=== PATIENT | female | born 1950 | race Caucasian/White ===

== ENCOUNTER 2019-10-10 14:22 | Outpatient (CLI) | payer MEDICARE, SELFPAY ==
--- NOTE | ~2019-10-10 | XR_ITS ---
EXAMINATION: XR knee RT min 4V DATE: 10/10/2019 14:52 INDICATION: Right knee pain. TECHNIQUE: 4 views of right knee were obtained. COMPARISON: Right knee radiographs 12/09/2018 FINDINGS: There is varus angulation at the knee. No fracture. There is severe osteoarthritis of media l compartment and mild osteoarthritis of lateral and patellofemoral compartments. No knee joint effus ion. IMPRESSION: 1. Severe right knee osteoarthritis. Reviewed, dictated and finalized at location A.
== END 2019-10-10 14:23 | disposition home or self-care (01) ==
LOC: CHSIMG 14:26
PROVIDERS: PCP Internal Medicine; Visit Provider Internal Medicine
DX: M25.561 Pain in right knee (principal)
CPT/HCPCS: 73564

== ENCOUNTER 2019-11-27 16:41 | Outpatient (RCR) | payer MEDICARE, SELFPAY | END 2019-11-27 17:36 | disposition home or self-care (01) | LOC: CHSPT 16:41 | PROVIDERS: PCP Internal Medicine; Visit Provider Orthopaedic Surgery | DX: M17.11 Unilateral primary osteoarthritis, right knee (principal) | CPT/HCPCS: 97161 ==

== ENCOUNTER 2020-01-08 12:50 | Outpatient (CLI) | payer MEDICARE, SELFPAY ==
--- NOTE | ~2020-01-08 | MR_ITS ---
EXAMINATION: MRA brain wo con DATE: 01/08/2020 14:28 INDICATION: Cerebral aneurysm. TECHNIQUE: Magnetic resonance angiography (MRA) of the brain was performed without intravenous contra st with T1-weighted SPGR by the 3D [id number] technique. Maximum intensity projection 3D-reconstr uctions were obtained. COMPARISON: Brain MRI 10/01/2014 FINDINGS: Left vertebral artery is dominant. There is no significant stenosis of basilar artery or the posterio r cerebral arteries. The posterior communicating arteries are normal. There is no significant stenosi s of the intracranial internal carotid arteries or anterior or middle cerebral arteries. 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 There is no aneurysm. IMPRESSION: 1. No aneurysm or significant intracranial arterial stenosis. Reviewed, dictated and finalized at location B.
--- NOTE | ~2020-01-08 | MR_ITS ---
EXAMINATION: MR brain/brain stem wo/w con DATE: 01/08/2020 14:29 INDICATION: Cerebral aneurysm. TECHNIQUE: Magnetic resonance imaging (MRI) of the brain and brainstem was performed without and with 17 mm MultiHance intravenous contrast. Sequences included sagittal and axial T1-weighted FSE, axial diffusion-weighted FS EPI, axial T2*-weighted GRE, axial T2-weighted FLAIR Propeller, and axial T2-we ighted Propeller. Postcontrast sequences included axial and coronal T1-weighted FSE. Apparent diffusi on coefficient (ADC) maps were created. COMPARISON: Brain MRI 10/01/2014 FINDINGS: There are areas of chronic encephalomalacia in right frontal lobe with old blood products. Again seen are chronic scattered microhemorrhages in the cerebrum bilaterally with sparing of the neal p laird nuclei. There are scattered areas of nonspecific increased T2-weighted signal intensity in the cerebral white matter. There is no acute ischemic infarct or abnormal mass lesion. The ventricles ar e normal in size. The paranasal sinuses are clear. The orbits are normal. The mastoid air cells are n ormal. IMPRESSION: 1. Areas of chronic encephalomalacia in the right frontal lobe with old blood products. 2. Scattered chronic microhemorrhages in the cerebrum bilaterally with sparing of the deep laird nucle i. This finding is most commonly seen with amyloid angiopathy. 3. Stable moderate nonspecific cerebral white matter disease, which likely represents chronic small v essel ischemic disease. Reviewed, dictated and finalized at location B. IMPRESSION: 1. Areas of chronic encephalomalacia in the right frontal lobe with old blood p roducts. 2. Scattered chronic microhemorrhages in the cerebrum bilaterally with sparing of the deep laird nuclei. This finding is most commonly seen with amyloid angiop athy. 3. Stable moderate nonspecific cerebral white matter disease, which likely repr esents chronic small vessel ischemic disease.
[2020-01-08 13:47] LABS: Estimated Glomerular Filt Rate > 60
== END 2020-01-08 12:51 | disposition home or self-care (01) ==
PROVIDERS: PCP Internal Medicine; Visit Provider Psychiatry & Neurology Neurology
DX: I67.1 Cerebral aneurysm, nonruptured (principal)
CPT/HCPCS: 36415; 70544; 70553; A9577

== ENCOUNTER 2020-03-15 12:48 | Outpatient (CLI) | payer MEDICARE, SELFPAY ==
--- NOTE | ~2020-03-15 | MM_ITS ---
EXAMINATION: MM screening [facility] BI w jolie HISTORY: Screening TECHNIQUE: Craniocaudal and mediolateral oblique 3-D tomosynthesis images were obtained and synthetic 2-D images were generated. CAD analysis was submitted and interpreted. COMPARISON: Comparison to multiple prior studies sequentially, with oldest reviewed study dated 01/2012. BREAST PARENCHYMAL COMPOSITION: There are scattered areas of fibroglandular density. FINDINGS: There is no evidence of suspicious mass, calcification, or architectural distortion to sugg est malignancy in either breast. There has been no suspicious interval change. IMPRESSION: 1. No mammographic evidence of malignancy. 2. Recommend routine screening mammography in one year. BI-RADS Category 1: Negative Reviewed, dictated and finalized at location A.
== END 2020-03-15 12:49 | disposition home or self-care (01) ==
LOC: CHSIMG 12:49
PROVIDERS: PCP Internal Medicine; Visit Provider Internal Medicine
DX: Z12.31 Encounter for screening mammogram for malignant neoplasm of breast (principal)
CPT/HCPCS: 77063; 77067

== ENCOUNTER 2020-09-18 08:51 | Outpatient (CLI) | payer MEDICARE, SELFPAY ==
--- NOTE | 2020-09-18 08:58 | ECHO_ITS ---
Patient Info Name: Ani Salgado Age: 70 years : 1950 Gender: Female Ht: 66 in Wt: 217 lbs BSA: 2.18 m2 HR: 62 bpm BP: 170 / 66 mmHg Heart Rhythm: Sinus Rhythm Technical Quality: Fair Exam Date: 09/18/2020 9:06 AM Exam Location: [facility], [place] Patient Status: Outpatient Admit Date: 09/18/2020 Staff Ordering Physician: SundarKristine MD Pool Lifeguard: Eloisa Blair RDCS Attending Provider: Sundar, Kristine Lopez MD Referring Physician: Oseas NGUYEN; Exam Type: CA echo doppler color flow Study Info Indications R06.09 - Other forms of dyspnea Complete two-dimensional, color flow and Doppler transthoracic echocardiogram is performed with contrast to opacify the left ventricle and to improve the deliniation of the left ventricle endocardial borders. Strain analysis performed. Contrast/Agitated Saline Contrast/Ag. Saline: Definity Amount: 4.00 ml New IV Access: Antecubital Space and Right Site Condition: No extravasation, Site dressing applied and IV removed History/Risk Factors Hypertension: No Dyslipidemia: No Congenital Heart Disease (CHD): No Peripheral Arterial Disease (PAD): No Myocardial Infarction ([place]): No Chronic Lung Disease: No Obesity: Yes Renal Disease: No Coronary Artery Disease (CAD) No Congestive Heart Failure (CHF): No Cardiomyopathy/LV Systolic Dysfunction: No Diabetes Mellitus: No COPD: No Tobacco Use: Never Cerebrovascular Disease: CVA Family History: Diabetes Mellitus Deep Vein Thrombosis (DVT): None Dialysis: None Frailty Scale (CSHA): 3: Managing Well Cardiac Arrest: No Summary 1. Left ventricular chamber dimension is normal. 2. Definity contrast administered improved wall motion interpretation. 3. Left ventricular systolic function is normal, estimated at 60-65%. 4. The left ventricular diastolic function is grade I diastolic dysfunction. 5. E/e' 12 is mildly elevated. 6. Global longitudinal strain is abnormal at -13.4%. 7. Left atrial chamber dimension is mildly enlarged. 8. There is trace tricuspid valve regurgitation. 9. No pulmonary hypertension, estimated pulmonary arterial systolic pressure is 36 mmHg. Left Ventricle E/e' 12 is mildly elevated. Global longitudinal strain is abnormal at -13.4%. Definity contrast administered improved wall motion interpretation. Left ventricular chamber dimension is normal. Left ventricular systolic function is normal, estimated at 60-65%. The left ventricular diastolic function is grade I diastolic dysfunction. Right Ventricle Right ventricular systolic function is normal with normal TAPSE 2.4 cm.. Right ventricular chamber dimension is normal. Left Atria Left atrial chamber dimension is mildly enlarged. Right Atria Right atrial chamber dimension is normal. Aortic Valve The aortic valve is trileaflet. There is no aortic valve stenosis. There is no aortic valve regurgitation. Pulmonic Valve There is no pulmonic regurgitation. Mitral Valve There is no mitral valve stenosis. There is no mitral valve regurgitation. Tricuspid Valve There is trace tricuspid valve regurgitation. No pulmonary hypertension, estimated pulmonary arterial systolic pressure is 36 mmHg. Pericardium/Pleural There is no pericardial effusion. Inferior Vena Cava Normal inferior vena cava with >50% collapse upon inspiration consistent with normal
== END 2020-09-18 08:52 | disposition home or self-care (01) ==
LOC: CHSIMG 08:52
PROVIDERS: PCP Internal Medicine; Visit Provider Internal Medicine Endocrinology, Diabetes & Metabolism
DX: R06.09 Other forms of dyspnea (principal)
CPT/HCPCS: C8929

== ENCOUNTER 2020-09-24 08:57 | Outpatient (CLI) | payer MEDICARE, SELFPAY ==
--- NOTE | 2020-09-25 15:15 | P.PCNPFT_ITS ---
PFT Procedure Performed PFT Procedure Performed Spirometry with Pre/Post Bronchodilator Plethysmography (Lung Vol) Diffusing Cap (DLCO) Flow Vol Loop PFT Interpretation DOS: 09/24/2020 REQUESTING: Kristine Farooq MD REASON FOR TESTING: Dyspnea on exertion PULMONARY FUNCTION TESTS results are reliable and reproducible. Spirometry: FEV1 is 1.21 L, 53% predicted moderately decreased. FVC is 68% predicted. The FEV1/FVC ratio is normal. there is a robust response to bronchodilator, 27% increase in the FEV1 and 30% increase in the FVC. Lung volumes: Total lung capacity is 97% normal. Slow vital capacity is 68%. Residual volume is 147%, moderately increased consistent with moderate air zeina ing. RV/TLC also increased. Airway resistance is increased at 288%. Diffusion: DLCO is 86% predicted, normal. Flow volume loop: There is scooping of the expiratory limb, consistent with an obstructive impairment. IMPRESSION: This shows a moderate obstructive ventilatory impairment with excellent response to bronchodilator, moderate air trapping, increased airway resistance and normal diffusion. In the proper clinical setting this pattern may be consistent with asthma. Savi Brumfield MD
== END 2020-09-24 08:58 | disposition home or self-care (01) ==
LOC: CHSCARD 09:00
PROVIDERS: PCP Internal Medicine; Visit Provider Internal Medicine Endocrinology, Diabetes & Metabolism
DX: R06.00 Dyspnea, unspecified (principal)
CPT/HCPCS: 94060; 94726; 94729

== ENCOUNTER 2020-12-19 15:50 | Outpatient (CLI) | payer MEDICARE, SELFPAY ==
--- NOTE | ~2020-12-19 | XR_ITS ---
XR ankle LT min 3V DATE: 12/19/2020 16:07 INDICATION: Left ankle and pain and swelling for one week. No injury. TECHNIQUE: 4 views COMPARISON: None FINDINGS: Diffuse soft tissue swelling of the ankle. No fracture or dislocation of the ankle or disruption of the ankle mortise. No periosteal reaction or bone destruction. Plantar calcaneal enthesopathy IMPRESSION: Soft tissue swelling Plantar calcaneal enthesopathy Reviewed, dictated and finalized at location A.
== END 2020-12-19 15:51 | disposition home or self-care (01) ==
LOC: CHSIMG 15:52
PROVIDERS: PCP Internal Medicine; Visit Provider Nurse Practitioner Family
DX: M25.472 Effusion, left ankle (principal)
CPT/HCPCS: 73610

== ENCOUNTER 2020-12-20 12:00 | Outpatient (CLI) | payer MEDICARE, SELFPAY ==
--- NOTE | ~2020-12-20 | US_ITS ---
EXAMINATION: US venous doppler [facility] DATE: 12/20/2020 12:29 INDICATION: Left lower limb swelling TECHNIQUE: June scale images without and with compression and Doppler images of the left lower extrem ity veins were obtained. COMPARISON: None FINDINGS: The left common femoral vein, profunda femoral vein, femoral vein, popliteal vein, peroneal trunk, posterior tibial veins, and greater saphenous vein are patent. IMPRESSION: 1. Patent left lower extremity veins. No evidence of deep venous thrombosis. Reviewed, dictated and finalized at location B.
== END 2020-12-20 12:01 | disposition home or self-care (01) ==
LOC: CHSIMG 12:02
PROVIDERS: PCP Internal Medicine; Visit Provider Nurse Practitioner Family
DX: M79.89 Other specified soft tissue disorders (principal); R79.1 Abnormal coagulation profile
CPT/HCPCS: 93971

== ENCOUNTER 2021-05-05 12:53 | Outpatient (CLI) | payer MEDICARE, SELFPAY ==
--- NOTE | ~2021-05-05 | DEXA_ITS ---
Bone Density Report Name: Ani Salgado Age: 71 Sex: Female Ethnicity: White Date of : 1950 Indication: postmenopausal; screening for osteoporosis; height loss; prior fracture; asthma or emphysema; Referring Provider: Jonathan Cabral Study: Bone densitometry was performed. Exam Date: May 05, 2021 Accession number: [id number] Bone Density: Region BMD T-score Z-score Classification AP Spine(L1-L4) 1.099 0.5 2.7 Normal Femoral Neck (Left) 0.875 0.2 2.2 Normal Total Hip (Left) 1.046 0.9 2.5 Normal Femoral Neck (Right) 0.829 -0.2 1.7 Normal Total Hip (Right) 1.020 0.6 2.3 Normal Femoral Neck Mean 0.852 0.0 1.9 Normal Total Hip Mean 1.033 0.7 2.4 Normal World Health Organization criteria for BMD impression classify patients as: Normal (T-score at or above -1.0), Osteopenia (T-score between -1.0 and -2.5), or Osteoporosis (T-score at or below -2.5). 10-year Fracture Risk: FRAX not reported because: All T-scores for Spine Total, Hip Total, Femoral Neck at or above -1.0 Clinical Information Provided by Patient: Has had a low trauma fracture Has used the following medications: Vitamin D, Calcium Has the following medical conditions: Asthma or Emphysema, stem cell treatment on knee rt Patient maximum height was 67 Menopause Age: 45 No regular weight bearing exercise Drinks caffeinated beverages Onset of menses at age 9 Number of children 3 Impression: The patient has normal bone mass. The patient has risk factors, including: previous fracture. Discussion: BONE DENSITY IS ABOVE THE MINIMUM DESIRABLE LEVEL AT ALL SKELETAL SITES TESTED. This patient?s bone mineral density is above the minimum desirable level (T-score -1.0 or better) at all sites measured. The patient should follow a healthful lifestyle (good nutrition with adequate calcium and vitamin D, and appropriate weight-bearing exercise). Follow-Up: Consider repeating this study in 5 years or sooner if there is some new clinical indication. Reported by: Dr. Viktor Coffman on 05/05/2021 1:43:00 PM. Reviewed, dictated and finalized at location AKrish ESTRADA
--- NOTE | ~2021-05-05 | MM_ITS ---
EXAMINATION: MM screening [facility] BI w jolie HISTORY: Screening TECHNIQUE: Craniocaudal and mediolateral oblique 3-D tomosynthesis images were obtained and synthetic 2-D images were generated. CAD analysis was submitted and interpreted. COMPARISON: Comparison to multiple prior studies sequentially, with oldest reviewed study dated 06/27. BREAST PARENCHYMAL COMPOSITION: Breast composed of scattered areas of fibroglandular density. FINDINGS: There is no evidence of suspicious mass, calcification, or architectural distortion to sugg est malignancy in either breast. There has been no suspicious interval change. IMPRESSION: 1. No mammographic evidence of malignancy. 2. Recommend routine screening mammography in one year. BI-RADS Category 1: Negative Reviewed, dictated and finalized at location A. WARE ASSEMBLER
== END 2021-05-05 12:54 | disposition home or self-care (01) ==
LOC: CHSIMG 12:55
PROVIDERS: PCP Internal Medicine; Visit Provider Internal Medicine
DX: M81.0 Age-related osteoporosis without current pathological fracture (principal); Z12.31 Encounter for screening mammogram for malignant neoplasm of breast
CPT/HCPCS: 77063; 77067; 77080

== ENCOUNTER 2022-05-26 15:39 | Emergency (ER) | payer MEDICARE, SELFPAY ==
--- NOTE | ~2022-05-26 | XR_ITS ---
EXAMINATION: XR knee LT 3V DATE: 05/26/2022 16:08 INDICATION: Left knee pain TECHNIQUE: Three views of the left knee were obtained. COMPARISON: None. FINDINGS: Alignment is normal. No fracture or osteochondral lesion. There is mild tricompartmental os teoarthritis characterized by tiny marginal osteophytes. Chondrocalcinosis is noted. No joint effusio n/synovitis. There is soft tissue swelling surrounding the knee. IMPRESSION: 1. No acute osseous abnormality. Reviewed, dictated and finalized at location L. DENT ANALYST
--- NOTE | 2022-05-26 15:47 | ED.LOWEXIN ---
HPI - Extremity Injury (Lower) General Chief Complaint: Extremity Injury, Lower Stated Complaint: injured left knee a week ago Time Seen by Provider: 05/26/22 15:46 Source: patient and RN notes reviewed Mode of arrival: ambulatory Limitations: no limitations History of Present Illness complaint: knee injury Onset (ago): day(s) (12) Injury: Left: knee Type of Injury: blunt Place: home Severity: moderate Severity scale (1-10): 5 Relieving factors: rest Exacerbating factors: movement and palpation Context: fall and direct blow Associated symptoms: swelling and ambulatory Other symptoms: none Treatments prior to arrival: bandage Related Data Home Medications Medication Instructions Recorded Confirmed albuterol sulfate 90 mcg/actuation 2 puff inhalation Q4H 05/26/22 05/26/22 aerosol inhaler fluticasone furoate 200 1 inh inhalation DAILY 05/26/22 05/26/22 mcg-vilanterol 25 mcg/dose inhalation powder (Breo Ellipta) latanoprost 0.005 % eye drops 1 drp EACH EYE DAILY 05/26/22 05/26/22 Allergies Allergy/AdvReac Type Severity Reaction Status Date / Time Sulfa (Sulfonamide Allergy Unknown Verified 05/26/22 16:00 Antibiotics) Review of Systems Review of Systems: All systems reviewed & are unremarkable except as noted in HPI and below PMFSH Past Medical History Medical History (Updated 05/26/22 @ 16:33 by Gulshan Calzada MD) Asthma Glaucoma Surgical History Surgical History (Updated 05/26/22 @ 16:08 by Gulshan Calzada MD) H/O lumbar discectomy H/O parathyroidectomy Hx of cholecystectomy Exam Const: General: healthy appearing, no acute distress and alert Nutritional Appearance: well nourished Orientation/consciousness: patient oriented x3 Limitations: no limitations HENMT: Head: normal to inspection Ears: external ears normal Eyes: Conjunctivae: conjunctivae normal Pupils: Equal, round and reactive pupils present EOM: EOMs intact bilaterally Neck: Neck: normal visual inspection Resp: Effort & Inspection: normal respiratory effort Auscultation: clear to auscultation bilaterally Cardio: Rate: regular rate Rhythm: regular rhythm GI: GI Palp: Yes Soft to palpation and No Tenderness to palpation present (GI) Auscultation: normal bowel sounds Back/Spine/Pelvis: Cervical Spine: cervical ROM normal Thoracic/Lumbar Spine: thoraco-lumbar ROM normal Skin: General skin exam: normal color Rashes: no rashes Neuro: General: patient oriented x3, moves all extremities, no focal motor deficits and CN's II-XI intact bilaterally Speech: normal speech Gait exam (Neuro): Normal gait present Extrem: General: no clubbing, cyanosis or edema Left lower extremity: knee Details: tenderness Location: of the patella (global), swelling Location: of the patella (mild) and abrasion knee anterior Details: single Psych: Mental Status: mental status grossly normal Affect: normal affect Attitude: cooperative Course Vital Signs Vital signs: Vital Signs Temperature 36.6 C 05/26/22 15:52 Pulse Rate 60 05/26/22 15:52 Respiratory Rate 20 05/26/22 15:52 Blood Pressure 159/59 H 05/26/22 15:52 Pulse Oximetry 94 05/26/22 15:52 Oxygen Delivery Room Air 05/26/22 15:52 Temperature 36.7 C 05/26/22 16:42 Pulse Rate 62 05/26/22 16:42 Respiratory Rate 20 05/26/22 16:42 Blood Pressure 148/60 H 05/26/22 16:42 Pulse Oximetry 96 05/26/22 16:42 Oxygen Delivery Room Air 05/26/22 16:42 MDM - Extremity Injury (Lower) MDM Narrative Medical decision making narrative: I considered knee contusion, patellar fracture, tibial plateau fracture, internal knee derangement. Exam does not show any evidence of internal knee derangement. All of her tenderness is over the patella which shows no evidence of fracture. Imaging Data Attestation: I personally reviewed and interpreted this imaging study as follows: My impression: I see no evidence of patellar fracture or abnormal knee pat
[2022-05-26 15:52] VITALS: BP 159/59; PULSE 60; RESP 20; TEMP 36.6; O2SAT 94
[2022-05-26 16:42] VITALS: BP 148/60; PULSE 62; RESP 20; TEMP 36.7; O2SAT 96
== END 2022-05-26 16:45 | disposition home or self-care (01) ==
PROVIDERS: Emergency Provider Emergency Medicine; PCP Internal Medicine
DX: S80.02XA Contusion of left knee, initial encounter (principal); W19.XXXA Unspecified fall, initial encounter
CPT/HCPCS: 73562; 99283

== ENCOUNTER 2022-09-17 12:57 | Outpatient (CLI) | payer MEDICARE, SELFPAY ==
--- NOTE | ~2022-09-17 | MM_ITS ---
EXAMINATION: MM screening [facility] BI w jolie HISTORY: Screening mammogram TECHNIQUE: Craniocaudal and mediolateral oblique 3-D tomosynthesis images were obtained and synthetic 2-D images were generated. CAD analysis was submitted and interpreted. COMPARISON: 05/05/2021, 03/15/2020, 07/14/2018 BREAST PARENCHYMAL COMPOSITION: There are scattered areas of fibroglandular density. FINDINGS: No suspicious mass, calcification, or architectural distortion are identified in either edna ast to suggest malignancy. There has been no suspicious interval change. IMPRESSION: 1. No mammographic evidence of malignancy. 2. Recommend routine screening mammography in one year. BI-RADS Category 1: Negative Reviewed, dictated and finalized at location A.
== END 2022-09-17 12:58 | disposition home or self-care (01) ==
LOC: CHSIMG 13:00
PROVIDERS: PCP Internal Medicine; Visit Provider Internal Medicine Endocrinology, Diabetes & Metabolism
DX: Z12.31 Encounter for screening mammogram for malignant neoplasm of breast (principal)
CPT/HCPCS: 77063; 77067

== ENCOUNTER 2023-07-15 12:49 | Outpatient (CLI) | payer MEDICARE, SELFPAY ==
[2023-07-15 13:27] LABS: Anion Gap 10 mmol/L (8-16); Blood Urea Nitrogen 21 mg/dL (7-18); Calcium 9.2 mg/dL (8.5-10.1); Carbon Dioxide 29 mmol/L (21-32); Chloride 103 mmol/L (98-108); Estimated Glomerular Filt Rate 59; Glucose 107 mg/dL (70-99); Osmolality Calculated 297 mOsm/kg (285-295); Potassium 4.2 mmol/L (3.5-5.1); Sodium 142 mmol/L (136-145)
== END 2023-07-15 12:50 | disposition home or self-care (01) ==
LOC: CHSLAB 12:52
PROVIDERS: PCP Internal Medicine; Visit Provider Internal Medicine
DX: I10 Essential (primary) hypertension (principal)
CPT/HCPCS: 36415; 80048

== ENCOUNTER 2023-09-03 11:10 | Outpatient (RCR) | payer MEDICARE, SELFPAY ==
--- NOTE | 2023-09-03 13:13 | OPREHPOC ---
Outpatient Therapy Plan of Care This is a Multidisciplinary Plan of Care that may contain components documented by all disciplines (PT, OT, and ST.) PT Problem 1 PT Problem #1 Knowledge Deficit PT Goal 1 Goal patient to demonstrate independence with HEP Target Visit 4 PT Problem 2 PT Problem #2 Pain PT Goal 1 Goal 1. Patient to report highest pain at 2/10 2. Patient to report ability to sleep with no disturbance due to R knee pain Target Visit 8 PT Problem 3 PT Problem #3 Impaired Range of Motion PT Goal 1 Goal Patient to demonstrate 0-120 deg of R knee AROM to return to stair navigation at PLOF Target Visit 8 PT Problem 4 PT Problem #4 Impaired Strength PT Goal 1 Goal Patient to demonstrate 5/5 R knee and hip strength to return to getting into and out of bed with independence Target Visit 8 PT Problem 5 PT Problem #5 Impaired Functional Mobil PT Goal 1 Goal 1. Patient to report ability to grocery shop with no seated breaks 2. Patient to improve LEFS by 20% 3. Patient to complete 6 min walk test without use of AD Target Visit 8
--- NOTE | 2023-09-03 13:13 | PTOPEVAL1 ---
Assessment and note entered by Breana Zuniga DPT Evaluation Information Assessment Status Evaluation Diagnosis R knee pain Onset 08/13/23 Subjective Information Patient reports she underwent a R TKA on . She had home health until 08/30/23. She reports she returned to [place] on 09/01/23 and returns 09/29/23. She reports she is able to sleep in bed. She reports she is elevating and icing. She reports she used a cane prior to surgery and has used a walker since . She reports she would eventually like to walk without AD. She reports difficulty getting her leg into bed, navigating steps, and ambulating prolonged periods. She reports she also has a raised toilet. Patient reports she is retired. Patient reports history of stroke with residual L sided weakness Reported Pain Level Pain Score 4: Self Report Assessment PT Clinical Summary Mrs. Salgado presents to PT with R knee s/p R TKA. She demonstrates decreased R knee, decreased R knee strength and impaired gait mechanics limiting her ability to get into and out of bed, navigate stairs and ambulate prolonged distances for grocery shopping. She would benefit from skilled PT to address impairments and return to PLOF. Plan of Care Interventions Electrical Stimulation,Gait Training,Hot Pack/Cold Pack,Manual Therapy,Neuro Re-education,Patient/ Caregiver Educati,Therapeutic Activities, Therapeutic Exercise PT Services Indicated Yes Treatment Frequency and 2x weekly for 8 visits Duration These treatments will address the objective and functional deficits as defined above. The patient will be advanced safely and appropriately in order for the patient to progress towards his/her prior level of function. Additional exercises will be introduced and as well as a comprehensive home exercise program upon discharge, if needed, ?to ensure carryover of functional gains achieved in the clinic. This treatment plan has been reviewed and agreement upon by the patient.
--- NOTE | 2023-09-30 17:09 | OPREHPOC ---
Outpatient Therapy Plan of Care This is a Multidisciplinary Plan of Care that may contain components documented by all disciplines (PT, OT, and ST.) PT Problem 1 PT Problem #1 Knowledge Deficit PT Goal 1 Goal patient to demonstrate independence with HEP Target Visit 4 Progress Met PT Problem 2 PT Problem #2 Pain PT Goal 1 Goal 1. Patient to report highest pain at 2/10 2. Patient to report ability to sleep with no disturbance due to R knee pain Target Visit 20 Progress Partially Met Comment continue PT Problem 3 PT Problem #3 Impaired Range of Motion PT Goal 1 Goal Patient to demonstrate 0-120 deg of R knee AROM to return to stair navigation at PLOF Target Visit 20 Progress Partially Met Comment continue PT Problem 4 PT Problem #4 Impaired Strength PT Goal 1 Goal Patient to demonstrate 5/5 R knee and hip strength to return to getting into and out of bed with independence Target Visit 20 Progress Not Met PT Problem 5 PT Problem #5 Impaired Functional Mobil PT Goal 1 Goal 1. Patient to report ability to grocery shop with no seated breaks 2. Patient to improve LEFS by 20% 3. Patient to complete 6 min walk test without use of AD Target Visit 20 Progress Not Met Comment continue
--- NOTE | 2023-09-30 17:10 | PTOPPROG ---
Assessment and note entered by Ami Khan, PT Evaluation Information Assessment Status Progress Diagnosis R knee pain, R TKA Onset 08/13/23 Subjective Information Ani Salgado reports she saw the doctor yesterday and she was given a new order to continue PT. She said the doctor was happy with her range of motion but thought she needed to work on strength more and get her knee all the way straight. She is noting 1/10 right knee pain currently and pain will get up to 3/10 at worst when she is stretching. She does note difficulty going up and down stairs especially tall ones. She also has some pain when standing up from a chair. She was able to drive for the first time since surgery. She has stopped using her walker at home. Assessment PT Clinical Summary Ani Salgado has completed 8 skilled PT visits for right knee pain following a right TKA. She is reporting decreased pain and improved mobility since initiating PT. She is still having difficulty navigating stairs, getting out of chairs, and walking longer distances. She was able to start driving by herself for the first time today. She is objectively demonstrating steady improvements in right knee ROM, strength, gait, and balance. She does still have deficits in right knee extension AROM, decreased functional LE strength, altered gait, and altered balance. She will continue to benefit from skilled PT to further address ongoing deficits. Plan of Care Interventions Gait Training,Intermittent Compression,Neuro Re- education,Patient/Caregiver Educati,Therapeutic Activities,Therapeutic Exercise PT Services Indicated Yes Treatment Frequency and 2 times a week for 12 visits Duration These treatments will address the objective and functional deficits as defined above. The patient will be advanced safely and appropriately in order for the patient to progress towards his/her prior level of function. Additional exercises will be introduced and as well as a comprehensive home exercise program upon discharge, if needed, ?to ensure carryover of functional gains achieved in the clinic. This treatment plan has been reviewed and agreement upon by the patient.
--- NOTE | 2023-11-17 11:30 | PTOPPROG ---
Assessment and note entered by Jhonny Schmidt Evaluation Information Assessment Status Progress Diagnosis R knee pain, R TKA Onset 08/13/23 Subjective Information Pt. reports that her knee pain is mild in general. She reports that she will notice pain with activity, but is decreasing. She reports that she still notes stiffness in the knee, but is improving. Her biggest concern at this time is her inability to balance. 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 She states that she would like to continue with PT in order to improve balance and walk through the yard independently. Assessment PT Clinical Summary Pt. has attended a total of 20 treatment sessions to address right knee pain and stiffness post R TKA. She has met majority of goals regarding function and knee mobility. She continues to express concern regarding balance and feeling that she may fall. Upon assessment slight fall risk is noted with the TInetti. Continued skilled PT is indicated in order to address balance deficits, remaining strength deficits and to assist pt. in being able to participate in regular outdoor activities without use of an AD. Plan of Care Interventions Gait Training,Manual Therapy,Neuro Re-education, Patient/Caregiver Educati,Therapeutic Activities, Therapeutic Exercise,Self-Care/Home Management PT Services Indicated Yes Treatment Frequency and 2x/week x 8 visits Duration These treatments will address the objective and functional deficits as defined above. The patient will be advanced safely and appropriately in order for the patient to progress towards his/her prior level of function. Additional exercises will be introduced and as well as a comprehensive home exercise program upon discharge, if needed, ?to ensure carryover of functional gains achieved in the clinic. This treatment plan has been reviewed and agreement upon by the patient.
--- NOTE | 2023-11-24 06:57 | PCPTNOTE ---
Cancelled session today. Reports she has to be in [place] by 10:15 am.
== END 2023-12-01 09:52 | disposition still patient (30) ==
LOC: CHSPT 11:10
DX: M17.11 Unilateral primary osteoarthritis, right knee (principal)
CPT/HCPCS: 97014; 97016; 97110; 97112; 97150; 97161; 97530; G0283

== ENCOUNTER 2023-11-23 10:17 | Outpatient (CLI) | payer MEDICARE, SELFPAY ==
--- NOTE | ~2023-11-23 | MM_ITS ---
EXAMINATION: MM screening [facility] BI w jolie HISTORY: Screening mammogram TECHNIQUE: Craniocaudal and mediolateral oblique 3-D tomosynthesis images were obtained and synthetic 2-D images were generated. CAD analysis was submitted and interpreted. COMPARISON: 09/17/2022, 05/05/2021, 03/15/2020 BREAST PARENCHYMAL COMPOSITION:Not Dense. There are scattered areas of fibroglandular density. FINDINGS: No suspicious mass, calcification, or architectural distortion are identified in either edna ast to suggest malignancy. There has been no suspicious interval change. IMPRESSION: No mammographic evidence of malignancy. Recommend routine screening mammography in one year. BI-RADS Category 1: Negative Reviewed, dictated and finalized at location .
== END 2023-11-23 10:18 | disposition home or self-care (01) ==
PROVIDERS: PCP Internal Medicine; Visit Provider Internal Medicine
DX: Z12.31 Encounter for screening mammogram for malignant neoplasm of breast (principal)
CPT/HCPCS: 77063; 77067

== ENCOUNTER 2023-12-06 10:15 | Outpatient (RCR) | payer MEDICARE, SELFPAY ==
--- NOTE | 2023-12-20 11:30 | OPREHPOC ---
Outpatient Therapy Plan of Care This is a Multidisciplinary Plan of Care that may contain components documented by all disciplines (PT, OT, and ST.) PT Problem 1 PT Problem #1 Knowledge Deficit PT Goal 1 Goal patient to demonstrate independence with HEP Target Visit 4 Progress Met PT Problem 2 PT Problem #2 Pain PT Goal 1 Goal 1. Patient to report highest pain at 2/10 met 2. Patient to report ability to sleep with no disturbance due to R knee pain met Target Visit 20 Progress Met PT Problem 3 PT Problem #3 Impaired Range of Motion PT Goal 1 Goal Patient to demonstrate 0-120 deg of R knee AROM to return to stair navigation at PLOF Target Visit 20 Progress Met PT Problem 4 PT Problem #4 Impaired Strength PT Goal 1 Goal Patient to demonstrate 5/5 R knee and hip strength to return to getting into and out of bed with independence Target Visit 20 Progress Met PT Problem 5 PT Problem #5 Impaired Functional Mobil PT Goal 1 Goal 1. Patient to report ability to grocery shop with no seated breaks 2. Patient to improve LEFS by 20% 3. Patient to complete 6 min walk test without use of AD New Goals added 11/17/23 4. Patient with increase Tinetti score to 24 or greater indicating low fall risk 5. Patient will be able to walk over outdoor surfaces for 5-10 minutes without an AD independently. Target Visit 20 Progress Met
--- NOTE | 2023-12-20 11:30 | PTOPDC ---
Assessment and note entered by Ami Khan, PT Evaluation Information Assessment Status Discharge Diagnosis R knee pain, R TKA ICD-10 Condition Codes (PT) M25.561 Other ICD-10 Condition Codes ( M17.11, Z96.651 PT) Onset 08/13/23 Subjective Information Ani Salgado reports her right knee is doing better overall. She is not having pain in the right knee anymore and she is back to going up and down stairs without difficulty. She can perform her previous activities including walking in the yard without a walking stick. She denies any additional falls. She will see her surgeon again in January. Reported Pain Level Pain Score 0: Self Report Assessment PT Clinical Summary Ani Salgado has completed 28 skilled PT visits following a right total knee arthroplasty. She reports minimal to no pain in the right knee and she is back to walking in the yard without a walking stick and going up and down stairs. She objectively demonstrates right knee AROM of 0-122 degrees, improved gait, improved balance, and improved LE strength. She has met all goals and is now a low fall risk. She will be discharged to an independent [facility]. Plan of Care PT Services Indicated No
== END 2023-12-20 13:38 | disposition home or self-care (01) ==
LOC: CHSPT 10:15
DX: M17.11 Unilateral primary osteoarthritis, right knee (principal)
CPT/HCPCS: 97110; 97112; 97750

== ENCOUNTER 2024-12-11 08:18 | Outpatient (CLI) | payer MEDICARE, SELFPAY ==
--- OUTSIDE RECORDS SUMMARY | 2024-12-11 08:23 | XMS_ITS | Data Portability ---
Author Organization [facility] [address] [facility] Address [address] [place] [address] Assessment No assessment recorded. Plan of Treatment Reminders Order Date Submit Date Provider Last Modified By Organization Details Last Modified Time Details Appointments None recorded. Lab venipunctur e 2017 018 [email or web address] Not available 8 09:25:12 Referral None recorded. Procedures None recorded. Surgeries None recorded. Imaging None recorded. Medication Orders None recorded. Patient TargetsNo targets recorded. Patient InstructionsNo instructions recorded. Reason for Referral None Reported. Problems No Known Problems Medical Equipment None Reported. Allergies No known drug allergies Medications Name Sig Start Date Stop Date Status Note LastModified by Organization Details LastModified Time oxybutynin chloride ER 10 mg tablet,extended release 24 hr active Not Available Not Availabl e Not Available sulfamethoxazole 800 mg-trimethoprim 160 mg tablet active Not Available Not Availabl e Not Available levothyroxine 75 mcg tablet active Not Available Not Available N ot Available ketorolac 0.5 % eye drops active Not Available Not Available No t Available levothyroxine 50 mcg tablet active Not Available Not Available N ot Available oxybutynin chloride 5 mg tablet active Not Available Not Available Not Available Vitals None Recorded Social History None recorded. Functional Status None recorded. Mental Status None recorded. Family History Nothing Reported. Medical History No medical history recorded. Gynecological HistoryNo gynecological history recorded. Obstetrics History GPAL:G 0 P 0 0 0 0 Past Encounters Encounter ID Performer Location Encounter Start Date Encounter Closed Date Diagnosis/Indication Diagnosis SNOMED-CT Code Diagnosis ICD10 Code Diagnosis Note [id number] Donavan Daviesmahad Main Office [address] [facility] [address] [place] [address] 06/24/2017 13:27:17 07/02/2017 17:36:45 Screening for disorder 843344167 Z13.9 Health Concerns Section Related Observation LastModified by Organization Detai ls LastModified Time None Recorded Concern Status LastModified by Organization Details LastModified Time None Recorded Advance Directives Directive None Recorded Payers Insurance Date Sequence Insurance Name Policy Number Policy Villareal Covered Member ID Villareal Member ID Guarantor Name 06/24/2017 1 *SELF PAY* Josie Salgado OBGyn Episode No OBEpisode recorded.
--- OUTSIDE RECORDS SUMMARY | 2024-12-11 08:23 | XMS_ITS | Data Portability ---
Author Organization [place] - [facility] [employer], Main Office Address [address] [place] [address] Care Team Providers Care Restaurant Area Director Name Role Phone HATCHMILLICYVENKAT Primary Care Provider [phone] Assessment No assessment recorded. Plan of Treatment Reminders Order Date Submit Date Provider Last Modified By Organization Details Last Modified Time Details Appointments None recorded. Lab None recorded. Referral None recorded. Procedures None recorded. Surgeries None recorded. Imaging None recorded. Medication Orders Breo Ellipta 200 mcg-25 mcg/dose powder for inhalation 2022 023 [facility], [facility], [place], [address], 3 16:14:36 albuterol sulfate 2.5 mg/3 mL (0.083 %) solution for nebulizatio n 2022 023 [facility], [address] [place] [address], [place], [address], 3 16:14:33 albuterol sulfate HFA 90 mcg/actuati on aerosol inhaler 2022 023 [facility], [facility], [place], [address], 3 16:14:35 Breo Ellipta 200 mcg-25 mcg/dose powder for inhalation 2022 023 [facility], [facility], [place], [address], 12:06:12 Patient TargetsNo targets recorded. Patient InstructionsNo instructions recorded. Reason for Referral None Reported. Results Created Date Observation Date Name Description Value Unit Range Abnormal Flag Note LastModifiedBy Organization Detail LastModifiedTime 09/11/1909/11/2022 COMPR EHENS BO METAB OLIC PANEL glucose 91 mg/dL 65-99 normal Fasti ng refer ence inter gali Not Available [address], [address], 09/11/2022 16:50:23 09/11/19 23 09/11/2022 COMPR EHENS BO METAB OLIC PANEL urea nitrogen (BUN) 23 mg/dL 7-25 normal Not Available [address], [address], 09/11/2022 16:50:23 09/11/19 23 09/11/2022 COMPR EHENS BO METAB OLIC PANEL creatinine 0.64 mg/dL 0.60-1 .00 normal Not Available [address], [address], 09/11/2022 16:50:23 09/11/19 23 09/11/2022 COMPR EHENS BO METAB OLIC PANEL eGFR 93 mL/mi n/1.7 3m2 > or = 60 normal The eGFR is based on the CKD-E PI 2020 equat ion. To calcu late the new eGFR from a previ ous Creat inine or Cysta tin C resul t, go to https ://alba w.mary monzon.o tommy/bryan yost/ kdoqi /gfr% 5Fcal culat or Not Available [address], [address], 09/11/2022 16:50:23 09/11/19 23 09/11/2022 COMPR EHENS BO METAB OLIC PANEL BUN/creatini ne ratio NOT APPLIC ABLE (calc ) 6-22 Not Available [address], [address], 09/11/2022 16:50:23 09/11/19 23 09/11/2022 COMPR EHENS BO METAB OLIC PANEL sodium 144 mmol/ L 135-14 6 normal Not Available [address], [address], 09/11/2022 16:50:23 09/11/19 23 09/11/2022 COMPR EHENS BO METAB OLIC PANEL potassium 4.4 mmol/ L 3.5-5. 3 normal Not Available [address], [address], 09/11/2022 16:50:23 09/11/19 23 09/11/2022 COMPR EHENS BO METAB OLIC PANEL chloride 108 mmol/ L 98-110 normal Not Available [address], [address], 09/11/2022 16:50:23 09/11/19 23 09/11/2022 COMPR EHENS BO METAB OLIC PANEL carbon dioxide 27 mmol/ L 20-32 normal Not Available [address], [address], 09/11/2022 16:50:23 09/11/19 23 09/11/2022 COMPR EHENS BO METAB OLIC PANEL calcium 9.6 mg/dL 8.6-10 .4 normal Not Available [address], [address], 09/11/2022 16:50:23 09/11/19 23 09/11/2022 COMPR EHENS BO METAB OLIC PANEL protein, total 6.5 g/dL 6.1-8. 1 normal Not Available [address], [address], 09/11/2022 16:50:23 09/11/19 23 09/11/2022 COMPR EHENS BO METAB OLIC PANEL albumin 4.0 g/dL 3.6-5. 1 normal Not Available [address], [address], 09/11/2022 16:50:23 09/11/19 23 09/11/2022 COMPR EHENS BO METAB OLIC PANEL globulin 2.5 g/dL_ (calc ) 1.9-3. 7 normal Not Available [address], [address], 09/11/2022 16:50:23 09/11/19 23 09/11/2022 COMPR EHENS BO METAB OLIC PANEL albumin/glob ulin ratio 1.6 (calc ) 1.0-2. 5 normal Not Available [address], [address], 09/11/2022 16:50:23 09/11/19 23 09/11/2022 COMPR EHENS BO METAB OLIC PANEL bilirubin, total 0.5 mg/dL 0.2-1. 2 normal Not Available [address], [address], 09/11/2022 16:50:23 09/11/19 23 09/11/2022 COMPR EHENS BO METAB OLIC PANEL alkaline phosphatase 39 U/L 37-153 normal Not Available [address] [address] [place], [address], 09/11/2022 16:50:23 09/11/19 23 09/11/2022 COMPR EHENS BO METAB OLIC PANEL AST 14 U/L 10-35 normal Not Available [address], [address], 09/11/2022 16:50:23 09/11/19 23 09/11/2022 COMPR EHENS BO METAB OLIC PANEL ALT 15 U/L 6-29 normal Not Available [address], [address], 09/11/2022 16:50:23 09/11/19 23 09/11/2022 COMPR EHENS BO METAB OLIC PANEL copy(ies) sent to: [facility] [address] [place] [address] Not Available [address] [address] [place], [address], 09/11/2022 16:50:23 09/11/19 23 09/11/2022 ALBUM IN, RANDO M URINE W/CRE ATINI NE creatinine, random urine 52 mg/dL 20-275 normal Not Available [address] [address] [place], [address], 09/11/2022 16:50:23 09/11/19 23 09/11/2022 ALBUM IN, RANDO M URINE W/CRE ATINI NE albumin, urine 1.6 mg/dL see note: normal Refer ence Range : Refer ence Range Not estab lishe d Not Available [address] [address] , [place], [address], 09/11/2022 16:50:23 09/11/19 23 09/11/2022 ALBUM IN, RANDO M URINE W/CRE ATINI NE albumin/crea tinine ratio, random urine 31 mcg/m g_cre at <30 high The ADA defin es abnor malit ies in album in excre tion as follo ws: Album inuri a Categ ory Resul t (mcg/ mg creat inine ) Miesha l to Mildl y incre ased <30 Moder ately incre ased 30-29 9 Sever alvino incre ased > OR = 300 The ADA recom mends that at least two of three speci mens colle cted withi n a 3-6 month perio d be abnor mal befor e consi galdino g a patie nt to be withi n a diagn ostic categ ory. Not Available [address] [address] [place], [address], 09/11/2022 16:50:23 09/11/19 23 09/11/2022 ALBUM IN, RANDO M URINE W/CRE ATINI NE copy(ies) sent to: [facility] [address] [place] [address] Not Available [address], [address], 09/11/2022 16:50:23 09/11/19 23 09/11/2022 THYRO ID PEROX IDASE ANTIB ODIES thyroid peroxidase antibodies <1 IU/mL <9 normal Not Available [address], [address], 09/11/2022 16:50:24 09/11/19 23 09/11/2022 THYRO ID PEROX IDASE ANTIB ODIES copy(ies) sent to: [facility] [address] [place] [address] Not Available [address], [address], 09/11/2022 16:50:24 09/11/19 23 09/11/2022 T3, FREE T3, free 3.0 pg/mL 2.3-4. 2 normal Not Available [address], [address], 09/11/2022 16:50:24 09/11/19 23 09/11/2022 T3, FREE copy(ies) sent to: [facility] [address] [place] [address] Not Available [address], [address], 09/11/2022 16:50:24 09/11/19 23 09/11/2022 TSH+F REE T4 TSH 1.07 mIU/L 0.40-4 .50 normal Not Available [address], [address], 09/11/2022 16:50:25 09/11/19 23 09/11/2022 TSH+F REE T4 T4, free 1.3 NG/dL 0.8-1. 8 normal Not Available [facility] [address], [place], [address], 09/11/2022 16:50:25 09/11/19 23 09/11/2022 TSH+F REE T4 copy(ies) sent to: [facility] [address] [place] [address] Not Available [facility] [address] [address] [address], [place], [address], 09/11/2022 16:50:25 09/11/19 23 09/11/2022 HEMOG LOBIN A1C hemoglobin A1C 5.3 %_of_ total _HGB <5.7 normal For the purpo se of heidialaina eng[place] for the prese nce of diabe feli: <5.7% Consi stent with the absen ce of diabe feli 5.7-6 .4% Consi stent with incre ased risk for diabe feli (pred iabet es) > or =6.5% Consi stent with diabe feli This assay resul t is consi stent with a decre ased risk of diabe feli. Curre ntly, no conse nsus exist s milla michaud use of hemog lobin A1c for diagn osis of diabe feli in child phu. Accor ding to Ameri can Diabe feli Assoc iatio n (ADA) guide lines , hemog lobin A1c <7.0% repre sents optim al contr ol in non-p regna nt diabe tic patie nts. Diffe rent metri cs may apply to speci fic patie nt popul ation s. Stand ards of Medic al Care in Diabe feli(A DA). Not Available [facility] [address] [place], [address], 09/11/2022 16:50:25 09/11/19 23 09/11/2022 HEMOG LOBIN A1C copy(ies) sent to: [facility] [address] [place] [address] Not Available [facility] [facility] [address] [address], [place], [address], 09/11/2022 16:50:25 03/11/20 22 03/11/2022 US, abdom en No observ ation record ed. [id number] [facility] [address], [place], [address], 07/29/2022 02:35:39 09/18/19 23 09/17/2022 MAMMO , kristen england bilsourav eral No observ ation record ed. [facility] [address] [place], [address], 09/29/2022 08:25:03 Result Notes None recorded. Problems Name Problem SNOMED Code Status Onset Date Resolution Date Notes Provider Name and Address Organization Details Recorded Time Chronic obstructive pulmonary disease 93448773 Active 2020 Not Available [facility] 3 02:32:03 Body mass index 30+ - obesity 503065810 Active 2021 Not Available [facility] 3 02:32:03 Asthma 869979426 Active 2020 Not Available [facility] 3 02:32:03 Shmuel thyroiditis 57024330 Active 2021 Not Available [facility] 3 02:32:03 Gastroesophag eal reflux disease without esophagitis 443211904 Active 2021 Not Available [facility] 3 02:32:03 Dyspnea 865190789 Active 2020 Not Available [facility] 3 02:32:03 Prediabetes 620346832 Active 2021 Not Available [facility] 3 02:32:03 Obstructive sleep apnea syndrome 27087364 Active 2021 Not Available [facility] 3 02:32:03 Fatigue 19576789 Active 2020 Not Available [facility] 3 02:32:03 Allergic rhinitis 49697447 Active 2022 Tamela Judd, [facility]- [address], [address], [place], [address] , [facility] 3 13:24:49 Problem Notes None recorded. 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 Procedure Notes None recorded. Medical Equipment None Reported. Allergies Allergen ID Allergen Name Allergen Category Reaction Reaction Severity Criticality Documentation Date Start Date Code Code System Note Provider Name and Address Organization Details Recorded Time 3270 Substance with sulfonami de structure and antibacte rial mechanism of action (substanc e) medicatio n rash Not available Not available 07/29/2022 16735 8003 SNOMED Not Available [facility] 3 02:35:20 Medications Name Sig Start Date Stop Date Status Note LastModified by Organization Details LastModified Time latanoprost 0.005 % eye drops active Not Available Not Available Not Available atorvastati n 40 mg tablet active Not Available Not Available Not Available nystatin 100,000 unit/mL oral suspension Take 5 mL 4 times a day by oral route as directed for 10 days. active Not Available Not Available No t Available doxycycline hyclate 100 mg capsule 02/25 completed Not Available Not Available Not Available albuterol sulfate 2.5 mg/3 mL (0.083 %) solution for nebulizatio n Inhale 3 mL 3 times a day by nebulizat ion route for 30 days. 2022 active Not Available Not Available Not Avai lable azithromyci n 250 mg tablet 03/10 completed Not Available Not Available Not Available Lidocaine Viscous 2 % mucosal solution active Not Available Not Available Not Available hydrocodone 5 mg-acetamin ophen 325 mg tablet TAKE 1 TABLET BY MOUTH EVERY 6 HOURS NEEDED FOR PAIN FOR 7 DAYS 02/25 completed Not Available Not Available Not Available prednisone 20 mg tablet 03/10 completed Not Available Not Available Not Available ciprofloxac in 250 mg tablet 08/19 completed Not Available Not Available Not Available [place] Thyroid 15 mg tablet TAKE 1 TABLET BY MOUTH EVERY DAY active Not Available Not Available No t Available cephalexin 500 mg capsule 02/25 completed Not Available Not Available Not Available mupirocin 2 % topical ointment active Not Available Not Available Not Available albuterol sulfate HFA 90 mcg/actuati on aerosol inhaler INHALE 2 PUFFS EVERY 4 HOURS BY INHALATIO N ROUTE NEEDED FOR 30 DAYS. active Not Available Not Available No t Available metformin ER 500 mg tablet,exte nded release 24 hr Take 1 tablet twice a day by oral route with meals for 90 days. active Not Available Not Available No t Available diazepam 5 mg tablet 02/25 completed Not Available Not Available Not Available Vitamin C 2020 active Not Available Not Available Not Avai lable Vitamin D 2020 active Not Available Not Available Not Avai lable omega 3 183.3 mg-dha 75 mg-epa 91.6 mg-fish oil 306 mg capsule Take by oral route. 2020 active Not Available Not Available Not Avai lable Breo Ellipta 100 mcg-25 mcg/dose powder for inhalation Inhale 1 puff every day by inhalatio n route. 05/11 completed Not Available Not Available Not Available Breo Ellipta 200 mcg-25 mcg/dose powder for inhalation INHALE 1 PUFF EVERY DAY BY INHALATIO N ROUTE DIRECTED FOR 30 DAYS. active Not Available Not Available No t Available Ozempic 0.25 mg or 0.5 mg (2 mg/1.5 mL) subcutaneou s pen injector inject 0.25 mg SQ once weekly x 4 weeks then increase to 0.5 mg SQ weekly thereafte r 02/25 completed Not Available Not Available Not Available albuterol sulf 90 mcg/actuati on breath activated powder inhaler,sen sor active Not Available Not Available Not Available turmeric 100 mg-jonathan 150 mg-olive 50 mg-oreg 150 mg-capryl capsule Take by oral route. 2020 active Not Available Not Available Not Avai lable Vitals Date Recorded Body height Body mass index (BMI) Body weight Body temperature Heart rate Oxygen saturation Oxygen saturation in Arterial blood by Pulse oximetry Systolic And Diastolic Provider Name and Address Organization Details Last Updated DateTime 3 167.64 cm 35 kg/m2 38565.5 4 g 97.9 [degF] 66 /min 95 % 95 % 130/76 mm[Hg] Yara Keene MA [facility] [employer] [facility] 3 11:34:17 Date Recorded Body mass index (BMI) Body height Oxygen saturation Oxygen saturation in Arterial blood by Pulse oximetry Heart rate Body temperature Body weight Systolic And Diastolic Provider Name and Address Organization Details Last Updated DateTime 2 35.7 kg/m2 167.64 cm 96 % 96 % 80 /min 97.6 [degF] 002905. 35 g 139/82 mm[Hg] Not Available [facility] 3 02:31:00 Date Recorded Body height Body mass index (BMI) Body weight Heart rate Oxygen saturation Oxygen saturation in Arterial blood by Pulse oximetry Systolic And Diastolic Provider Name and Address Organization Details Last Updated DateTime 3 167.64 cm 34.1 kg/m2 12998.9 9 g 67 /min 97 % 97 % 150/64 mm[Hg] Michelle Too [facility] [employer] [facility] 3 12:08:09 Date Recorded Body mass index (BMI) Body height Oxygen saturation Oxygen saturation in Arterial blood by Pulse oximetry Heart rate Body temperature Body weight Systolic And Diastolic Provider Name and Address Organization Details Last Updated DateTime 2 34.4 kg/m2 167.64 cm 95 % 95 % 78 /min 97.2 [degF] 59093.1 7 g 122/80 mm[Hg] Not Available [facility] 3 02:31:00 Date Recorded Body mass index (BMI) Body height Oxygen saturation Oxygen saturation in Arterial blood by Pulse oximetry Heart rate Body temperature Body weight Systolic And Diastolic Provider Name and Address Organization Details Last Updated DateTime 2 34.7 kg/m2 167.64 cm 94 % 94 % 61 /min 97.2 [degF] 01213.3 6 g 154/72 mm[Hg] Not Available [facility] 02:31:00 Social History Question Answer Notes LastModified by [employer] Details LastModified Time Tobacco Smoking Status Never Smoker Not Available [facility] 07/29/2022 02:27:01 What Is Your Level Of Caffeine Consumption? Moderate [id number] Information not available 07/29/2022 How Much Tobacco Do You Chew? None [id number] Information not available 07/29/2022 In The 14 Days Before Symptom Onset, Have You Had Close Contact With A Laboratory-confirm ed COVID-19 While That Case Was Ill? No [id number] Information not available 07/29/2022 In The 14 Days Before Symptom Onset, Have You Had Close Contact With A Person Who Is Under Investigation For COVID-19 While That Person Was Ill? No [id number] Information not available 07/29/2022 Which Illicit Or Recreational Drugs Have You Used? None [id number] Information not available 07/29/2022 What Was The Date Of Your Most Recent Tobacco Screening? 01/20/2021 [id number] Information not available 07/29/2022 Do You Have Any Pets? No [id number] Information not available 07/29/2022 What Is Your Relationship Status? [id number] Information not available 07/29/2022 Have You Recently Traveled Abroad? No [id number] Information not available 07/29/2022 Sex: Female Functional Status Question Answer Note LastModified by Organizat ion Details LastModified Time Do you use any illicit or recreational drugs? No [id number] Information not available 07/29/2022 What is your level of alcohol consumption? None [id number] Information not available 07/29/2022 Do you or have you ever used smokeless tobacco? Never used smokeless tobacco [id number] Information not available 07/29/2022 What is your occupation? retired [id number] Information not available 07/29/2022 Do you or have you ever used e-cigarettes or vape? Never used electronic cigarettes [id number] Information not available 07/29/2022 Mental Status None recorded. Family History Relationship Description Onset Age of this Age Resolved Age Notes LastModified by Organization Details LastModified Time Sister Diabetes mellitus [id number] Not available 07/29/2022 02:29:42 Sister Hypothyroidi sm [id number] Not available 07/29/2022 02:29:42 Father Hypothyroidi sm [id number] Not available 07/29/2022 02:29:42 Medical History Condition Response NO SIGNIFICANT PAST MEDICAL HISTORY EYE PROBLEMS Y HYPOTHYROIDISM Y Gynecological HistoryNo gynecological history recorded. Obstetrics History GPAL:G 0 P 0 0 0 0 Past Encounters Encounter ID Performer Location Encounter Start Date Encounter Closed Date Diagnosis/Indication Diagnosis SNOMED-CT Code Diagnosis ICD10 Code Diagnosis Note [id number] MD MAGGIE Villator[facility] [place] [address] [place] [address] 08/19/2020 00:00:00 08/19/2020 17:17:27 [id number] Kristine Farooq MD S[facility] [place] [address] [place] [address] 11/18/2020 00:00:00 11/18/2020 14:08:23 [id number] [facility] [place] [address] [place] [address] 11/21/2020 00:00:00 11/21/2020 15:52:30 [id number] [facility] [place] [address] [place] [address] 01/20/2021 00:00:00 01/20/2021 15:47:48 [id number] Kristine Farooq MD [facility] [place] [address] [place] [address] 03/10/2021 00:00:00 03/10/2021 12:33:46 [id number] Kristine Farooq MD [facility] [place] [address] [place] [address] 08/04/2021 00:00:00 08/04/2021 14:44:32 [id number] [facility] [place] [address] [place] [address] 08/11/2021 00:00:00 08/11/2021 16:49:04 [id number] Kristine Farooq MD [facility] [place] [address] [place] [address] 11/14/2021 00:00:00 11/14/2021 15:10:45 [id number] [facility] [place] [address] [place] [address] 02/25/2022 00:00:00 02/25/2022 11:18:25 [id number] [facility] [place] [address] [place] [address] 03/06/2022 00:00:00 03/06/2022 13:48:59 [id number] PHONG Cabrera [facility] [place] [address] [place] [address] 04/08/2022 00:00:00 04/08/2022 14:22:53 [id number] PHONG Cabrera [facility] [place] [address] [place] [address] 05/11/2022 00:00:00 05/11/2022 13:35:04 [id number] [facility] [place] [address] [place] [address] 09/09/2022 11:20:52 09/10/2022 08:57:46 Asthma 954508572 J45.909 ACT 19 todayPFT 09/24/20 with FEV1 53%, ratio normal.27% increase in FEV1 PBD.DLCO 86%Plan to repeat within the next yearContin ue Breo Ellipta 200 once dailyShe is aware to rinse and spit after use.Rescue MDI PRN.CBC with manual eosinophil count normalIGE normalAvoi d triggers.D iscussed reportable signs and symptoms.R TC in 6 months, PRN for concern Allergic rhinitis 776024 04 J30.9 RAST with several positives: cedar, rob and mountain grassDaily antihistam ine OTC.She is not amenable to using any nasal sprayAdvis ed navage at least once daily Obstructiv e sleep apnea syndrome 09461362 G47.33 Home study 03/25/21 with AHI 19.2APAP set up 01/27/22Do wnload with 73.3% use greater than 4 hours.APAP 4-12AHI is 1.5Encoura ged 100% compliance with all sleepFollo w with PCM for labsOSA is well correctedE ncouraged 100% compliance with all sleepFollo w with PCM for labsAdvise d good sleep habits and patterns:- Set a goal for at least 7 to 8 hours of sleep time per day.-Use the bed mainly for sleep and to go to bed only when tired. If unable to fall asleep after 30 minutes, patient should get out of bed but should not engage in any activity that requires sustained mental alertness. -Maintain a regular bedtime and wake-up time even on weekends-A void excessive naps during the daytime. If a nap is necessary, limit it to no more than 30 minutes.-M inimize environmen iraida noise, bright lights, and extremes in bedroom temperatur e.-Avoid alcohol, caffeinate d beverages, and nicotine products for at least 6 hours prior to bedtime.-A void strenuous exercise and large meals for at least 4 hours prior to bedtime. Body mass index 30+ - obesity 702078185 Z68.35 Discussed weight management .Healthy well balanced meals.Incr ease exercise, ideally 30 minutes most days of the week. [id number] Tamela Judd, [facility] [place] [address] [place] [address] 03/10/2023 11:29:54 03/10/2023 12:32:47 Asthma 010507073 J45.909 ACT 16 todayPFT 09/24/20 with FEV1 53%, ratio normal.27% increase in FEV1 PBD.DLCO 86%Plan to repeat within the next yearContin ue Breo Ellipta 200 once dailyShe is aware to rinse and spit after use.Rescue MDI PRN.CBC with manual eosinophil count normalIGE normalAvoi d triggers.D iscussed reportable signs and symptoms.A dvised vaccines this fall Obstructiv e sleep apnea syndrome 13935734 G47.33 Home study 03/25/21 with AHI 19.2APAP set up 01/27/22Do wnload with 83.3% use greater than 4 hours.APAP 4-12AHI is 0.5Encoura ged 100% compliance with all sleepFollo w with PCM for labsOSA is well correctedE ncouraged 100% compliance with all sleepFollo w with PCM for labsAdvise d good sleep habits and patterns:- Set a goal for at least 7 to 8 hours of sleep time per day.-Use the bed mainly for sleep and to go to bed only when tired. If unable to fall asleep after 30 minutes, patient should get out of bed but should not engage in any activity that requires sustained mental alertness. -Maintain a regular bedtime and wake-up time even on weekends-A void excessive naps during the daytime. If a nap is necessary, limit it to no more than 30 minutes.-M inimize environmen iraida noise, bright lights, and extremes in bedroom temperatur e.-Avoid alcohol, caffeinate d beverages, and nicotine products for at least 6 hours prior to bedtime.-A void strenuous exercise and large meals for at least 4 hours prior to bedtime. Health Concerns Section Related Observation LastModified by Organization Detai ls LastModified Time None Recorded Concern Status LastModified by Organization Details LastModified Time None Recorded Advance Directives Directive None Recorded Payers Insurance Date Sequence Insurance Name Policy Number Policy Villareal Covered Member ID Villareal Member ID Guarantor Name 03/07/2023 1 [employer] (MEDICARE REPLACEMENT/ ADVANTAGE - PPO) [id number] Ani R Naomi [id number] Ani Salgado Notes Date Note Type Note Provider Name and Address Organization Details Recorded Time 09/09/2022 text/html Ms Salgado present s today to follow up on asthma, cough, OSARemains on Breo Ellipta 200 with good clinical benefitShe does not note symptoms increase unless she has been outsideIncreased rhinorrheaDyspnea has remained about the sameCough is intermittent and dry, rescue MDI use several times per weekDenies wheezing and chest tightness.She has had no exacerbation or respiratory illness in >1 yearPAP use more compliantly.Does not nap in the afternoonShe does occasionally wake at night to go to the bathroomReports that congestion and runny nose have interfered with PAP use recently Tamela Judd, [facility] [address], [facility] [address], [place], [address], [employer] 09/09/2022 13:50:36 03/10/2023 text/html Ms Salgado present s today to follow up on asthma, cough, OSARemains on Breo Ellipta 200 with good clinical benefitHas not had a respiratory exacerbation in the last 6 monthsDyspnea has improved.She has been able to sweep out the garage several times without difficultyCough is intermittent and dry, rescue MDI use several times per week with good clinical benefitContinues to report that weather changes impact her breathingDenies wheezing and chest tightness.PAP use more compliantly.Does not nap in the afternoonShe does occasionally wake at night to go to the bathroom Tamela Judd, [facility] [address], [address], [place], [address], [employer] 03/10/2023 16:18:41 OBGyn Episode No OBEpisode recorded.
--- OUTSIDE RECORDS SUMMARY | 2024-12-11 08:23 | XMS_ITS | Referral Summary ---
Author Organization [facility] [address] Address [address] [place] [address] Phone Care Team Providers Care Basin Cleaner Name Role Phone Jonathan Cabral MD Primary Care Provider + [phone] Allergies Active Allergy Reactions Criticality Noted Date Comments Sulfa (Sulfonamide Antibiotics) Rash Medium 09/2017 Medications mupirocin (BACTROBAN) 2 % ointment 8 Active PRIVATE CHEF THYROID 15 mg tablet 9 Active digestive enzymes tablet Take by mouth A ctive VITAMIN B COMPLEX ORAL Take 1 tablet by mouth daily Active estradiol (ESTRACE) 0.01 % (0.1 mg/gram) vaginal creamIndications :Atrophic Vaginitis associated with Menopause Apply nightly to vagina for 1 week, then Wednesday/ y/ Wednesday 42.5 g 5 9 Active Additional Information Patient not taking.Reported on 07/24/2024 latanoprost (XALATAN) 0.005 % ophthalmic solution latanoprost 0.005 % eye drops Active indapamide (LOZOL) 1.25 mg tablet Take 1 tablet (1.25 mg total) by mouth daily 4 Active amoxicillin 500 mg capsule Take 1 tablet/capsule (500 mg total) by mouth For dental procedures 4 Active lisinopriL (PRINIVIL,ZESTRI L) 10 mg tablet Take 1 tablet (10 mg total) by mouth daily 4 Active albuterol HFA (PROVENTIL HFA,VENTOLIN HFA,PROAIR HFA) 90 mcg/actuation inhaler Inhale 2 puffs every 4 (four) hours as needed for wheezing 8 g 11 4 Active fluticasone furoate-vilanter oL (Breo Ellipta) 200-25 mcg/dose diskus inhalerIndicatio ns:Mild persistent asthma without complication Inhale 1 puff daily 60 each 6 5 Active Active Problems Problem Noted Date Diagnosed Date Hoarseness 07/24/2024 Assessment & Plan (07/24/2024 12:14 PM CUSHION ASSEMBLER): This is intermittently persistent and has been chronic since her stroke in 2014 This is a possible sequela vocal cord paralysis however I will send her for an ENT evaluation with laryngoscopy Mild persistent asthma without complication 12/30 Assessment & Plan (07/24/2024 12:15 PM CUSHION ASSEMBLER): Continue Breo Ellipta 200 once daily She is aware to rinse and spit after use Continue albuterol as needed only, she is aware of indications for use Pulmonary function testing was significantly improved from prior, if she were to develop persistent dyspnea again in the absence of exacerbation I would recommend an echocardiogram. Avoid triggers I do not have any recent labs, I will request these from her primary care office to evaluate for peripheral eosinophilia We have discussed signs and symptoms that would require earlier evaluation or change to her plan of care Assessment & Plan (01/20/2024 1:03 PM CDT): Continue Breo Ellipta 200 daily She is aware to rinse and spit after use Continue albuterol as needed only, we have discussed indications for use Pulmonary function testing was significantly improved, if she were to develop persistent dyspnea again in the absence of exacerbation I would recommend echocardiogram Obstructive sleep apnea 01/20/2024 Assessment & Plan (07/24/2024 12:14 PM CUSHION ASSEMBLER): Continue PAP therapy with all sleep She is aware of the risks of uncorrected sleep apnea Continue to follow with sleep medicine Assessment & Plan (01/20/2024 1:04 PM CDT): Continue PAP therapy with all sleep She is aware of the risks of uncorrected sleep apnea Follow with sleep medicine History of intracranial hemorrhage 03/26/2023 Hypertension 02/17/2018 Thyroid disease 02/17/2018 Immunizations Immunization Administration Dates Next Due Pneumococcal Conjugate PCV 13 05/31/2014 ZOSTER LIVE 05/31/2014 Social History Tobacco Use Types Packs/Day Years Used Date Smoking Tobacco: Never Smokeless Tobacco: Never Tobacco Cessation:Counseling Given: Not Answered Comments No Sex and Gender Information Value Date Recorded Sex Assigned at Not on file Legal Sex Female 12:46 AM CUSHION ASSEMBLER Gender Identity Not on file Sexual Orientation Not on file 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 Not on file Not on file Not on file Last Filed Vital Signs Vital Sign Reading Time Taken Comments Blood Pressure 120/70 07/24/2024 10:18 AM CUSHION ASSEMBLER Pulse 76 07/24/2024 10:18 AM CUSHION ASSEMBLER Temperature 35.9 C (96.6 F) 07/24/2024 10:18 AM CUSHION ASSEMBLER Respiratory Rate 18 07/24/2024 10:18 AM CUSHION ASSEMBLER Oxygen Saturation 96% 07/24/2024 10:18 AM CUSHION ASSEMBLER Inhaled Oxygen Concentration - - Weight 101.6 kg (224 lb) 07/24/2024 10:18 AM CUSHION ASSEMBLER Height 168.9 cm (5' 6.5) 07/24/2024 10:18 AM CS T Body Mass Index 35.61 07/24/2024 10:18 AM CUSHION ASSEMBLER Plan of Treatment Not on file Insurance [facility] MEDICARE [facility] MEDIC[facility] Address: [facility] [address] [place] [address] AET MEDICARE AET MEDICARE Care Teams Basin Cleaner Relationship Specialty Start Date End Date Jonathan Cabral MD [address] [place] [address] PCP - General Internal Medicine 09/28/22
--- OUTSIDE RECORDS SUMMARY | 2024-12-11 08:23 | XMS_ITS | Clinical Summary ---
Author Organization [facility] Address [address] [place] [address] Care Team Providers Care Child And Adolescent Psychiatrist Name Role Phone Jonathan Cabral MD Primary Care Provider [phone] Allergies Active Allergy Reactions Criticality Noted Date Comments Sulfa Antibiotics Rash Medium 05/04/2018 Medications NON FORMULARY Take by mouth 3 (three) times daily. Digestive enzymes Active Vitamin D3 125 mcg Tab Take 1 tablet (125 mcg total) by mouth daily. Active Probiotic Product (PROBIOTIC ADVANCED) Cap Active fluticasone furoate-vilante rol (BREO ELLIPTA) 100-25 MCG/ACT inhaler Inhale 1 puff into the lungs daily. Active albuterol sulfate HFA 108 (90 Base) MCG/ACT inhaler Inhale 2 puffs into the lungs every 6 (six) hours as needed for Wheezing. Active Active Problems Problem Noted Date Diagnosed Date Bilateral primary osteoarthritis of knee 020 Hyperparathyroidism ([facility]) 05/04/2018 Hypertension 02/17/2018 Stroke ([facility]) 09/28/2014 Overview (02/15/2023): loss sensation left arm and hand also mouth function loss sensation left arm and hand also mouth function Social History Tobacco Use Types Packs/Day Years Used Date Smoking Tobacco: Never Smokeless Tobacco: Never Tobacco Cessation:Counseling Given: Not Answered Alcohol Use Standard Drinks/Week Comments Not Currently 0 (1 standard drink = 0.6 oz pur e alcohol) Comments No Sex and Gender Information Value Date Recorded Sex Assigned at Not on file Legal Sex Female 10:33 PM RN EMPLOYEE [employer] Gender Identity Not on file Sexual Orientation Not on file Last Filed Vital Signs Vital Sign Reading Time Taken Comments Blood Pressure 158/79 05/19/2023 9:03 AM RN EMPLOYEE HE[employer] Pulse 62 05/19/2023 9:03 AM RN EMPLOYEE HE[employer] Temperature 36.4 C (97.6 F) 05/19/2023 9:03 AM RN EMPLOYEE HE[employer] Respiratory Rate 16 05/19/2023 9:03 AM RN [employer]PL[employer]EE HE[employer] Oxygen Saturation 96% 05/19/2023 9:03 AM RN [employer]PL[employer] HE[employer] Inhaled Oxygen Concentration - - Weight 95.3 kg (210 lb) 05/12/2023 9:41 AM RN EMPLOYEE HE[employer] Height 167.6 cm (5' 6) 05/12/2023 9:41 AM RN EMPL[employer]EE HE[employer] Body Mass Index 33.89 05/12/2023 9:41 AM RN EMPLOYEE HE[employer] Plan of Treatment Health Maintenance Due Date Last Done Comments Colorectal Cancer Screening Colonoscopy (10 Years) 1950 Hepatitis C 1967 DTaP, Tdap and Td Vaccines ( 1 - Tdap) 1968 Annual Medicare Wellness Visit 2014 Dexa Scan (General) 2014 Zoster Vaccines (2 of 3) 07/26/2014 05/31/2014 Pneumococcal Vaccine: 50+ Years (2 of 2 - PPSV23) 02/19/2017 02/20/2016, 05/31/2014 COVID-19 Vaccine ( - 2023-2 5 season) 2024 RSV Immunization or 60+ Years (1 - 1-dose 75+ series) 2024 Meningococcal B Vaccine Aged Out No l onger eligible based on patient's age to complete this topic Meningococcal Vaccine Aged Out No elliot reggie eligible based on patient's age to complete this topic RSV Immunizations Under 20 Months Aged Out No longer eligible b ased on patient's age to complete this topic Medical Devices Implanted Type Area Grounds Cleaner Device Identifier Shelf Expiration Date Model / Serial / Lot Tecnis Dcbpp 18.5 Implanted:Qty: 1 on 02/17/2023 by Kailyn Valentin MD at [facility] Right: Lens [id number] 12/17/2025 DCB00 / [id number] / [employer] Simplicity Delivery System Implanted:Qty: 1 on 05/19/2023 by Kailyn Valentin MD at [facility] Left: Eye [id number] 12/27/2025 [facility] / [id number] / Insurance MED REPLACE [facility] MEDICARE AETNA Advance Directives * Full Code (Latest Code Status on File) Date Activated Date Inactivated Comments 02/17/2023 10:57 AM 02/17/2023 2:05 PM Care Teams Child And Adolescent Psychiatrist Relationship Specialty Start Date End Date Jonathan Cabral MD [address] [place] [address] PCP - General INTERNAL MEDICINE 03/19/20
--- OUTSIDE RECORDS SUMMARY | 2024-12-11 08:23 | XMS_ITS | Clinical Summary ---
Author Organization [facility] Address [address] [address] Phone Care Team Providers Care Cloud Subject Matter Expert Name Role Phone Provider, None Primary Care Provider Unavailabl e Allergies No known active allergies Medications levothyroxine (SYNTHROID) 75 MCG Tablet Take 75 mcg by mouth daily. Active oxybutynin (DITROPAN-XL) 10 MG TABLET SR 24 HR 12/25/2015 Active Active Problems Problem Noted Date Diagnosed Date Stroke 09/28/2014 Overview (06/19/2015): loss sensation left arm and hand also mouth function Thyroid disease Hypertension Immunizations Immunization Administration Dates Next Due Pneumococcal Vaccine - 13 Valent 05/31/2014 Zoster Vaccine, live 05/31/2014 Family History Medical History Relation Name Comments Diabetes Maternal Grandfather Heart Attack Paternal Grandfather Osteoarthritis Paternal Grandmother Relation Name Status Comments Maternal Grandfather Paternal Grandfather Paternal Grandmother Social History Tobacco Use Types Packs/Day Years Used Date Smoking Tobacco: Never Alcohol Use Standard Drinks/Week Comments Yes 1 (1 standard drink = 0.6 oz pur e alcohol) Sexually Active Control Partners Comments Not Currently Comments No Sex and Gender Information Value Date Recorded Sex Assigned at Not on file Legal Sex Female 8:08 AM SECOND HELPER Gender Identity Not on file Sexual Orientation Not on file Last Filed Vital Signs Vital Sign Reading Time Taken Comments Blood Pressure 130/82 01/08/2016 10:50 AM CDT Pulse 76 01/08/2016 10:50 AM CDT Temperature 36.7 C (98.1 F) 01/08/2016 10:50 AM CDT Respiratory Rate 18 01/08/2016 10:50 AM CDT Oxygen Saturation 96% 01/08/2016 10:50 AM CDT Inhaled Oxygen Concentration - - Weight 92.1 kg (203 lb) 01/08/2016 10:50 AM CDT Height 170.2 cm (5' 7) 01/08/2016 10:50 AM CDT Body Mass Index 31.79 01/08/2016 10:50 AM CDT Plan of Treatment Health Maintenance Due Date Last Done Comments Hepatitis C Virus (HCV) Screening 1950 TdaP Immunization 1950 Cologuard 1994 Colonoscopy 1994 Colorectal Cancer Screening 1994 Immunochemical Fecal Occult Blood 1994 Zoster Immunization (2 of 3) 07/26/2014 05/31/2014 Pneumococcal Immunization (5 0+ years) (2 of 2 - PPSV23) 05/31/2015 05/31/2014 SARS-COV-2 Immunization ( - 2023-25 season) 2024 Respiratory Syncytial Virus (RSV) Immunization (Adult) (1 - 1-dose 75+ series) 2024 Influenza Immunization (#1) 2025 Pneumococcal Immunization Combined Discontinued 2014 Hepatitis B Immunization Aged Out No longer eligible based on patient's age to complete this topic Human Papillomavirus (HPV) Immunization Aged Out No longer eligible b ased on patient's age to complete this topic Meningococcal Immunization (ACWY) Aged Out No longer eligible based on patient's age to complete this topic Rotavirus Immunization Aged Out No lo nger eligible based on patient's age to complete this topic Care Teams Cloud Subject Matter Expert Relationship Specialty Start Date End Date Provider, None [place] PCP - General 11/14/20
--- OUTSIDE RECORDS SUMMARY | 2024-12-11 08:24 | XMS_ITS | Clinical Summary ---
Author Organization [facility] Address [address] [place] [address] Phone Care Team Providers Care Manager Meeting Name Role Phone Jonathan Cabral MD Primary Care Provider + Allergies Active Allergy Reactions Criticality Noted Date Comments Sulfa (Sulfonamide Antibiotics) Rash Low 09/2017 Medications betamethasone dipropionate (DIPROSONE) 0.05 % Ointment 8 Active vitamin B complex (B COMPLEX 1) Tablet Take 1 Tablet by mouth daily. Active Digestive Enzymes Tablet Take by mouth. Active acetaminophen (TYLENOL 8 HOUR) 650 mg Extended Release tablet Take 650 mg by mouth every 6 hours as needed for Pain. Active biotin Tablet Take 5 mg by mouth daily. Active thyroid, pork, (ARMOUR THYROID) 15 mg tabletIndications:A cquired hypothyroidism Take 1 Tablet (15 mg) by mouth daily. daily 90 Tablet 9 Active Active Problems Problem Noted Date Diagnosed Date Acquired hypothyroidism 07/18/2018 Hyperparathyroidism 05/04/2018 Family History Medical History Relation Name Comments Healthy Neg Hx Social History Tobacco Use Types Packs/Day Years Used Date Smoking Tobacco: Never Smokeless Tobacco: Never Alcohol Use Standard Drinks/Week Comments No 0 (1 standard drink = 0.6 oz pur e alcohol) Comments No Sex and Gender Information Value Date Recorded Sex Assigned at Not on file Legal Sex Female 1:14 PM CDT Gender Identity Not on file Sexual Orientation Not on file Last Filed Vital Signs Vital Sign Reading Time Taken Comments Blood Pressure 142/82 07/18/2018 1:21 PM AUTO GLASS WORKER Pulse 80 07/18/2018 1:21 PM AUTO GLASS WORKER Temperature 36.7 C (98 F) 06/23/2018 3:20 PM AUTO GLASS WORKER Respiratory Rate 16 06/23/2018 3:20 PM AUTO GLASS WORKER Oxygen Saturation 95% 06/23/2018 3:20 PM AUTO GLASS WORKER Inhaled Oxygen Concentration - - Weight 79.8 kg (176 lb) 07/18/2018 1:21 PM AUTO GLASS WORKER Height 167.6 cm (5' 6) 07/18/2018 1:21 PM AUTO GLASS WORKER Body Mass Index 28.41 07/18/2018 1:21 PM AUTO GLASS WORKER Plan of Treatment Health Maintenance Due Date Last Done Comments DTAP/TDAP/TD VACCINES (1 - Tdap) 1969 COLORECTAL SCREENING 1994 Colorectal Cancer Screening 1994 FIT-DNA Q 3 years 1994 FIT/FOBT Q 1 year 1994 Flex Sig/CT Colonography Q 5 years 1994 OSTEOPOROSIS SCREENING 2014 PNEUMOCOCCAL VACCINE 50+ YEARS (2 of 2 - PPSV23) 07/2605/31/2014 ZOSTER VACCINE (2 of 3) 07/26/2014 05/31/2014 RSV VACCINE (60+ or ) (1 - 1-dose 75+ series) 2024 INFLUENZA VACCINE (#1) [address]24 [place] [address] [place] [address] AETNA PPO MCR Advance Directives For more information, please contact: [phone] Documents on File Type Date Recorded Patient Coal Sample Tester Expl anation Advance Directive POA 06/23/2018 9:08 AM A dvance Directive POA * Full Code (Latest Code Status on File) Date Activated Date Inactivated Comments 06/23/2018 10:50 AM 06/23/2018 5:59 PM * Full Code Date Activated Date Inactivated Comments 06/23/2018 8:40 AM 06/23/2018 10:50 AM * Full Code Date Activated Date Inactivated Comments 06/23/2018 8:30 AM 06/23/2018 8:40 AM Care Teams Manager Meeting Relationship Specialty Start Date End Date Jonathan Cabral MD [address] [place] [address] PCP - General Internal Medicine 04/20/18
--- OUTSIDE RECORDS SUMMARY | 2024-12-11 08:24 | XMS_ITS | Data Portability ---
Author Organization [employer], [facility] Address [address] [address] Assessment No assessment recorded. Plan of Treatment Reminders Order Date Submit Date Provider Last Modified By Organization Details Last Modified Time Details Appointments None recorded. Lab CBC w/ auto diff 2019 [facility], [address], [place], [address], 0 07:35:24 vitamin D, 25-hydroxy, total, serum 2019 [facility], [address], [place], [address], 0 07:35:25 Referral None recorded. Procedures None recorded. Surgeries None recorded. Imaging US, lower extremity, nonvascular 2019 [email or web address] Not available 0 11:56:57 XR, knee 2019 020 [email or web address] Not available 0 13:07:29 Medication Orders cephalexin 500 mg capsule 2019 020 [email or web address] Not available 0 13:07:29 diazepam 10 mg tablet 2019 020 [email or web address] Not available 0 13:07:29 Patient TargetsNo targets recorded. Patient Instructions Encounter Date Encounter Id Patient Instructions Last Modified By Organization Details Last Modified Time 02/14/2020 [id number] knee arthritis: care instructions Not available 02/14/2020 13:07:29 After review of radiographic and examination findings, we discussed treatment options available. These included corticosteroid injection, viscous supplementation, bracing of the knee, observation, surgical referral, physical therapy, pain management, and/or stem cell treatment. The patient is definitely interested in non-surgical alternatives. If they choose to undergo stem cell biologic treatment, it is understood that it is considered investigational and off label use of the product by FDA, that it is not a covered benefit by insurance, and that there is no guarantee of symptom improvement. With the malalignment and instability, I am recommending a right knee medial compartment loading and unloading supervisor brace. We measured the patient for this and will submit to insurance for coverage. If opting to undergo biologic treatment, an order was given for laboratory studies to be completed. We reviewed the stem cell treatment and depth. Information packet was given to and reviewed with the patient. All questions were answered related to the procedure, post procedure expectations, and cost associated with treatment. We also discussed that sometimes more than one biologic treatment is required to attain desired efficacy. They will call our office if they desire to schedule an appointment for treatment or review any of the other treatment options discussed. Patient will also RTC or call for any worsening, questions or concerns prn. Not available 02/17/2020 15:43:00 Reason for Referral None Reported. Results Created Date Observation Date Name Description Value Unit Range Abnormal Flag Note LastModifiedBy Organization Detail LastModifiedTime 02/14/2002/15/2020 CBC w/ auto diff white blood cell count 6.3 thous and/u L 3.8-10 .8 normal Not Available [facility] [address] [place] [address], [address], 02/15/2020 07:35:24 02/14/2002/15/2020 CBC w/ auto diff red blood cell count 4.91 melani on/uL 3.80-5 .10 normal Not Available [facility] [address] [place], [address], 02/15/2020 07:35:24 02/14/2002/15/2020 CBC w/ auto diff hemoglobin 14.3 g/dL 11.7-1 5.5 normal Not Available [address], [address], 02/15/2020 07:35:24 02/14/2002/15/2020 CBC w/ auto diff hematocrit 44.3 % 35.0-4 5.0 normal Not Available [address], [address], 02/15/2020 07:35:24 02/14/2002/15/2020 CBC w/ auto diff MCV 90.2 fL 80.0-1 00.0 normal Not Available [address], [address], 02/15/2020 07:35:24 02/14/2002/15/2020 CBC w/ auto diff MCH 29.1 pg 27.0-3 3.0 normal Not Available [address], [address], 02/15/2020 07:35:24 02/14/2002/15/2020 CBC w/ auto diff MCHC 32.3 g/dL 32.0-3 6.0 normal Not Available [address], [address], 02/15/2020 07:35:24 02/14/2002/15/2020 CBC w/ auto diff RDW 12.6 % 11.0-1 5.0 normal Not Available [address], [address], 02/15/2020 07:35:24 02/14/2002/15/2020 CBC w/ auto diff platelet count 252 thous and/u L 140-40 0 normal Not Available [address], [address], 02/15/2020 07:35:24 02/14/2002/15/2020 CBC w/ auto diff MPV 10.5 fL 7.5-12 .5 normal Not Available [facility] [address] [place], [address], 02/15/2020 07:35:24 02/14/2002/15/2020 CBC w/ auto diff absolute neutrophils 4076 cells /uL 1500-7 800 normal Not Available [address] [place], [address], 02/15/2020 07:35:24 02/14/2002/15/2020 CBC w/ auto diff absolute lymphocytes 1518 cells /uL 850-39 00 normal Not Available [address] [place], [address], 02/15/2020 07:35:24 02/14/2002/15/2020 CBC w/ auto diff absolute monocytes 485 cells /uL 200-95 0 normal Not Available [address] [place], [address], 02/15/2020 07:35:24 02/14/2002/15/2020 CBC w/ auto diff absolute eosinophils 183 cells /uL 15-500 normal Not Available [address] [address] [place], [address], 02/15/2020 07:35:24 02/14/2002/15/2020 CBC w/ auto diff absolute basophils 38 cells /uL 0-200 normal Not Available [address] [address] [place], [address], 02/15/2020 07:35:24 02/14/2002/15/2020 CBC w/ auto diff neutrophils 64.7 % normal Not Available [address] [address] [place], [address], 02/15/2020 07:35:24 02/14/2002/15/2020 CBC w/ auto diff lymphocytes 24.1 % normal Not Available [address] [address] [place], [address], 02/15/2020 07:35:24 02/14/20 20 02/15/2020 CBC w/ auto diff monocytes 7.7 % normal Not Available [address] [address] [place], [address], 02/15/2020 07:35:24 02/14/20 20 02/15/2020 CBC w/ auto diff eosinophils 2.9 % normal Not Available [address] [address] [place], [address], 02/15/2020 07:35:24 02/14/20 20 02/15/2020 CBC w/ auto diff basophils 0.6 % normal Not Available [facility] [address] [address] [place], [address], 02/15/2020 07:35:24 02/14/2002/15/2020 vitam in D, 25-hy droxy , total , serum vitamin D,25-oh,tota l,ia 43 NG/mL 30-100 normal Vitam in D Statu s 25-OH Vitam in D: Defic iency : <20 ng/mL Insuf ficie ncy: 20 - 29 ng/mL Optim al: > or = 30 ng/mL For 25-OH Vitam in D testi ng on patie nts on D2-montemayor pplem entat ion and patie nts for whom quant itati on of D2 and D3 fract ions is requi red, the [facility] Ass[facility] eD(TM ) 25-OH VIT D, (D2,D 3), LC/MS /MS is recom jahaira d: order code 08901 (precious ents >2yrs ). See Note 1 Note 1 For addit ional infor laura roajs e refer to http: //[facility] [employer] [employer].c om/fa q/FAQ 199 (This link is being provi ded for infor courtney mandujano/ kenneth cuadra purpo ses only. ) Not Available [address] [address] [place], [address], 02/15/2020 07:35:25 03/21/2003/2203/22/2021 CBC (INCL UDES DIFF/ PLT) white blood cell count 7.7 thous and/u L 3.8-10 .8 normal Not Available [address], [address], 03/22/2021 06:18:12 03/21/20 21 03/22/2021 CBC (INCL UDES DIFF/ PLT) red blood cell count 4.91 melani on/uL 3.80-5 .10 normal Not Available [address], [address], 03/22/2021 06:18:12 03/21/2003/22/2021 CBC (INCL UDES DIFF/ PLT) hemoglobin 13.6 g/dL 11.7-1 5.5 normal Not Available [address], [address], 03/22/2021 06:18:12 03/21/2003/22/2021 CBC (INCL UDES DIFF/ PLT) hematocrit 42.9 % 35.0-4 5.0 normal Not Available [address], [address], 03/22/2021 06:18:12 03/21/2003/22/2021 CBC (INCL UDES DIFF/ PLT) MCV 87.4 fL 80.0-1 00.0 normal Not Available [address], [address], 03/22/2021 06:18:12 03/21/2003/22/2021 CBC (INCL UDES DIFF/ PLT) MCH 27.7 pg 27.0-3 3.0 normal Not Available [address], [address], 03/22/2021 06:18:12 03/21/2003/22/2021 CBC (INCL UDES DIFF/ PLT) MCHC 31.7 g/dL 32.0-3 6.0 low Not Available [address], [address], 03/22/2021 06:18:12 03/21/2003/22/2021 CBC (INCL UDES DIFF/ PLT) RDW 13.9 % 11.0-1 5.0 normal Not Available [address], [address], 03/22/2021 06:18:12 03/21/2003/22/2021 CBC (INCL UDES DIFF/ PLT) platelet count 266 thous and/u L 140-40 0 normal Not Available [address], [address], 03/22/2021 06:18:12 03/21/2003/22/2021 CBC (INCL UDES DIFF/ PLT) MPV 11.0 fL 7.5-12 .5 normal Not Available [address], [address], 03/22/2021 06:18:12 03/21/2003/22/2021 CBC (INCL UDES DIFF/ PLT) absolute neutrophils 5390 cells /uL 1500-7 800 normal Not Available [address], [address], 03/22/2021 06:18:12 03/21/2003/22/2021 CBC (INCL UDES DIFF/ PLT) absolute lymphocytes 1532 cells /uL 850-39 00 normal Not Available [address], [address], 03/22/2021 06:18:12 03/21/2003/22/2021 CBC (INCL UDES DIFF/ PLT) absolute monocytes 547 cells /uL 200-95 0 normal Not Available [address], [address], 03/22/2021 06:18:12 03/21/2003/22/2021 CBC (INCL UDES DIFF/ PLT) absolute eosinophils 193 cells /uL 15-500 normal Not Available [address], [address], 03/22/2021 06:18:12 03/21/2003/22/2021 CBC (INCL UDES DIFF/ PLT) absolute basophils 39 cells /uL 0-200 normal Not Available [address], [address], 03/22/2021 06:18:12 03/21/2003/22/2021 CBC (INCL UDES DIFF/ PLT) neutrophils 70 % normal Not Available [address], [address], 03/22/2021 06:18:12 03/21/2003/22/2021 CBC (INCL UDES DIFF/ PLT) lymphocytes 19.9 % normal Not Available [address], [address], 03/22/2021 06:18:12 03/21/2003/22/2021 CBC (INCL UDES DIFF/ PLT) monocytes 7.1 % normal Not Available [facility] [address], [address], 03/22/2021 06:18:12 03/21/2003/22/2021 CBC (INCL UDES DIFF/ PLT) eosinophils 2.5 % normal Not Available [facility] [address], [address], 03/22/2021 06:18:12 03/21/2003/22/2021 CBC (INCL UDES DIFF/ PLT) basophils 0.5 % normal Not Available [facility] [address], [address], 03/22/2021 06:18:12 03/21/2003/22/2021 CBC (INCL UDES DIFF/ PLT) copy(ies) sent to: [facility] [address] [place] [address] Not Available [facility] [address] [place], [address], 03/22/2021 06:18:12 03/21/2003/22/2021 VITAM IN D,25- OH,TO [facility] STEWART A vitamin D,25-oh,tota l,ia 40 NG/mL 30-100 normal Vitam in D Statu s 25-OH Vitam in D: Defic iency : <20 ng/mL Insuf ficie ncy: 20 - 29 ng/mL Optim al: > or = 30 ng/mL For 25-OH Vitam in D testi ng on patie nts on D2-montemayor pplem entat ion and patie nts for whom quant itati on of D2 and D3 fract ions is requi red, the [facility] Assur eD(TM ) 25-OH VIT D, (D2,D 3), LC/MS /MS is recom jahaira d: order code 33889 (precious ents >2yrs ). See Note 1 Note 1 For addit ional infor laura rojas refer to http: //[facility] gn[employer] ics.c om/fa q/FAQ 199 (This link is being provi ded for infor courtney mandujano/ kenneth cuadra purpo ses only. ) Not Available [facility] [address] [address] [place], [address], 03/22/2021 06:18:15 03/21/20 21 03/22/2021 VITAM IN D,25- OH,TO [place] STEWART copy(ies) sent to: [facility] [address] [place] [address] Not Available [facility] [address] [address] [place], [address], 03/22/2021 06:18:15 02/20/20 20 10/30/2019 MRI, knee, w/o contr ast No observ ation record ed. BARCODE Not Available 2019 09:29:04 03/04/20 21 2021 XR, knee No observ ation record ed. [email or web address] [facility] [address] [facility] [facility], [place], [address], 04/21/2021 08:56:17 03/04/20 21 2021 XR, ankle No observ ation record ed. [email or web address] [facility] [address], [place], [address], 04/21/2021 08:56:18 03/05/20 XR, knee No observ ation record ed. [email or web address] Not Available 2020 09:13:53 Result Notes None recorded. Problems No Known Problems Procedures Surgical History Date Name Laterality Status Provider Name and Address Organization Details Recorded Time 1 Generic Procedure completed BARBARA CARIAS [address], [place], [address], [employer], [employer] 03/31/2021 13:41:25 Imaging Results None recorded. Procedure Notes None recorded. Medical Equipment None Reported. Allergies Allergen ID Allergen Name Allergen Category Reaction Reaction Severity Criticality Documentation Date Start Date Code Code System Note Provider Name and Address Organization Details Recorded Time 87449 Substance with sulfonami de structure and antibacte rial mechanism of action (substanc e) medicatio n Not available Not available Not available 02/14/2020 87739 8003 SNOMED Rivas sherwood, [employer] 0 12:23:39 Medications Name Sig Start Date Stop Date Status Note LastModified by Organization Details LastModified Time latanopros t 0.005 % eye drops active Not Available Not Available No t Available nystatin 100,000 unit/mL oral suspension active Not Available Not Available N ot Available doxycyclin e hyclate 100 mg capsule active Not Available Not Available Not Available clindamyci n HCl 300 mg capsule Take 3 capsules (total of 900mg) po one hour prior to procedure . One time dose. active Not Available Not Available No t Available azithromyc in 250 mg tablet active Not Available Not Available Not Available Lidocaine Viscous 2 % mucosal solution active Not Available Not Available Not Available hydrocodon e 5 mg-acetami nophen 325 mg tablet Take 1 tablet every 6 hours by oral route as needed for 7 days. 2021 active Not Available Not Available Not Avai lable prednisone 20 mg tablet active Not Available Not Available Not Available ciprofloxa rub[place] 250 mg tablet active Not Available Not Available Not Available [place] Thyroid 15 mg tablet TAKE 1 TABLET BY MOUTH EVERY DAY active Not Available Not Available No t Available cephalexin 500 mg capsule Take 4 capsules (total of 2g) po one hour prior to procedure . One time dose. 2021 active DO NOT use if PCN and Cephalosp precious Allergies are indicated . Not Available Not Available Not Available diazepam 10 mg tablet Take 1 tablet(s) 30 mins PRIOR to appointme nt PRN and repeat as directed by physician . 2021 active Not Available Not Available Not Avai lable albuterol sulfate HFA 90 mcg/actuat ion aerosol inhaler active Not Available Not Available Not Available metformin ER 500 mg tablet,ext ended release 24 hr active Not Available Not Available Not Available diazepam 5 mg tablet active Not Available Not Available No t Available Breo Ellipta 100 mcg-25 mcg/dose powder for inhalation active Not Available Not Available N ot Available Vitals Date Recorded Body height Body mass index (BMI) Body weight Heart rate Systolic And Diastolic Provider Name and Address Organization Details Last Updated DateTime 02/14/2020 165.1 cm 32.4 kg/m2 99254.51 g 66 /min 137/67 mm[Hg] Rivas Longoria [facility] [employer] 02/14/2020 12:23:24 Date Recorded Body height Body mass index (BMI) Body weight Heart rate Systolic And Diastolic Provider Name and Address Organization Details Last Updated DateTime 03/31/2021 165.1 cm 32.4 kg/m2 87969.51 g 68 /min 130/60 mm[Hg] Rivas Longoria [facility] [employer] [facility], [employer] 03/31/2021 13:02:24 Social History Question Answer Notes LastModified by Organizat ion Details LastModified Time Tobacco Smoking Status Never Smoker Rivas sherwood [facility] [employer] [facility], [employer] 02/14/2020 12:24:07 Live Alone Or With Others? With Others Information not available 03/31/2021 Marital Status Informatio n not available 03/31/2021 General Stress Level Medium Information not available 03/31/2021 Sex: Unknown Functional Status Question Answer Note LastModified by Organizat ion Details LastModified Time What is your level of alcohol consumption? None [email or web address] Information not available 02/14/2020 What is your occupation? retired [email or web address] Information not available 02/14/2020 What is your exercise level? Occasional Information not available 02/14/2020 Mental Status None recorded. Family History Relationship Description Onset Age of this Age Resolved Age Notes LastModified by Organization Details LastModified Time Sister Diabetes mellitus [email or web address] Not available 2019 12:24:02 Medical History Condition Response Other Cancer N HIV or AIDS N Coronary Artery Disease N Gout N Kidney Stones N Hyperthyroidism N Breast Cancer N Hernia N Head Trauma/Injury N Lung Cancer N Hypothyroidism N Lung Disease N Blood Clots N COPD N Depression N Pacemaker N Anxiety Disorder N Arthritis Y Kidney Cancer N Cancer N Stroke Y Leg or Foot Ulcers N Neck Injury N High Cholesterol N Liver Disease N Rheumatoid Arthritis N Fibromyalgia N Headaches N Kidney Disease N Heart Problems N Prostate Cancer N Migraines N Thyroid Problems N Anemia N Multiple Sclerosis N [place]on Tear N Ulcers N Heart Attack ([place]) N Diabetes N Bleeding Disorder N Seizures/Epilepsy N Tuberculosis N Urinary Tract Infection N Back Problems N Diverticulitis N Asthma N Lupus N Peripheral Vascular Disease N Sleep Disorder N GERD/Reflux N Hepatitis N Aneurysm N Thyroid Cancer N Heart Disease N Pulmonary Embolism N Hypertension N Osteoporosis N Gynecological HistoryNo gynecological history recorded. Obstetrics History GPAL:G 0 P 0 0 0 0 Past Encounters Encounter ID Performer Location Encounter Start Date Encounter Closed Date Diagnosis/Indication Diagnosis SNOMED-CT Code Diagnosis ICD10 Code Diagnosis Note [id number] Charley Soliman MD [facility] [address] [facility] ,[address] [place] SYDNIE PETER [id number] 02/14/2020 11:48:58 02/20/2020 12:22:29 Osteoarthritis of knee 332436675 M17.0 Bilateral knee pain, right greater than left, consistent with: Right knee grade 4 medial compartmen t with moderate patellofem oral osteoarthr osis; medial meniscal derangemen t moderate effusion; varus malalignme nt with instabilit y. Minimally symptomati c grade 3 medial compartmen t with moderate patellofem oral osteoarthr osis of the left knee; medial meniscal derangemen t moderate extrusion; mi varus malalignme nt without significan t instabilit y Anxiety 47304684 F41.9 Antibiotic prophylaxis indicated 404451217 Z78.9 Vitamin D deficiency 347 88899 E55.9 M89.9 M94.9 R53.83 Derangemen t of meniscus 177054415 M23.307 M23.306 [id number] BARBARA CARIAS [facility] [address] [facility] [place] [address] 03/31/2021 12:52:25 04/01/2021 14:40:15 Osteoarthritis of right knee joint 8040147102 62512 M17.11 Localized, primary osteoarthritis of the ankle and/or foot 501838658 M19.071 At today's office visit the patient's diagnosis and treatment options were discussed in great detail. The patient was provided with informatio n to make an informativ e decision on the next steps for treatment. The patient has tried several conservati ve measures including but not limited to PT, rest, ice, and NSAIDs with no beneficial relief. Given the imaging results and the duration of the patient's symptoms I would recommend BMAC with fat as they are an excellent candidate. We discussed the need for PRP at [facility] the 12-week michelle. The risk and benefits were discussed with the patient as well as functional and pain improvemen t outcomes. The procedure was discussed in detail as well as the recovery period. We discussed screening with R3 and its importance . We also discussed obtaining labs to ensure the patient is optimized for maximal results. I also discussed other conservati ve options. The patients case and treatment plan were reviewed in detail with Dr. Garza. PLAN: [facility]/fat to right knee with decompress ion medial anterior compartmen t. Left foot and ankle subtalar, talonavicu lar and navicular 1st cuneiform. All questions were answered, the patient understood the treatment plan. Greater than 45 minutes face-to-fa ce visit with more than 50% of my time spent counseling the patient about their diagnosis including pathophysi ology and treatment options. Health Concerns Section Related Observation LastModified by Organization Detai ls LastModified Time None Recorded Concern Status LastModified by Organization Details LastModified Time None Recorded Advance Directives Directive None Recorded Payers Insurance Date Sequence Insurance Name Policy Number Policy Villareal Covered Member ID Villareal Member ID Guarantor Name 03/24/2021 2 [place]ICARE [place] Ani Salgado [id number] Ani Salgado 06/09/2022 1 [facility] (MEDICARE REPLACEMENT/A DVANTAGE - PPO) [id number] Ani Salgado [id number] Ani Salgado Notes Date Note Type Note Provider Name and Address Organization Details Recorded Time 02/14/2020 text/html Ani is a pleasant 69-year-old female who presents our clinic today for evaluation of her Ani is a pleasant 69-year-old female who presents our clinic today for evaluation of her 11 year history of right knee pain. Last three years have been especially difficult. She has very minimal symptoms with her left. There is no definite mechanism of injury to the knees. Her pain started acute in nature but has gotten progressively worse. She saw her primary care physician Dr. Cabral. He was treating her conservatively with anti-inflammatory medications and activity modification. He then had her undergo Visco supplement injections and prescribed her formal physical therapy. She continued to have problems with her knees. She saw Dr. Aguayo who proceeded with radiographs and then MRI examination. Her MRI dated 10/30/2019 demonstrates advanced medial compartment osteoarthritic change with moderate patellofemoral chondromalacia. There is degenerative meniscal tearing appreciated. 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 He recommended joint replacement surgery when she was ready. She is trying to avoid joint replacement especially with her history of cerebral bleed. Her pain is mostly along the medial greater than anterior aspect of the knee. She does have increased instability and periodic giving way with the knees. She describes it as a sharp stabbing type pain. Her last corticosteroid injection given was over a year ago which offered moderate temporary improvement. She is here today for evaluation and to discuss the potential for stem-cell biologic treatment for her knees. SYDNIE Pérez - [employer] [facility], [facility] 02/17/2020 15:44:20 03/31/2021 text/html 71-year-old fema le comes in today complaining of right knee pain as well as left ankle pain. In regards the right knee she was treated with stem cell intervention 02/20/20 then PRP 05/14/20 she had minimal improvements that were not long lasting. she is well started developed pain and discomfort on the lateral aspect of her left ankle. Her pain and discomfort in the knee and ankle progressively gotten worse. Currently the ankle pain is not bothersome she has been attending a massage therapist which does help significantly with cupping of the ankle her knee is bothered more positive bothersome than anything. She describes her pain as intermittent and sharp. She rates her pain as a 5 to 7/10. She has after inactivity she experiences pain. She experiences weakness and stiffness. Light motion does help. Patient states that she does participate in water walking which helps her the most. 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 BARBARA CARIAS [address], [place], [address], [facility], [facility] 03/31/2021 13:43:30 OBGyn Episode No OBEpisode recorded.
--- OUTSIDE RECORDS SUMMARY | 2024-12-11 08:24 | XMS_ITS | Clinical Summary ---
Author Organization [facility] Address [address] [place] [address] Care Team Providers Care Community Outreach Advocate Name Role Phone Jonathan Cabral MD Primary Care Provider [phone] Source Comments [facility],non-owned Affiliates and Associated Physician Practices is amultiple site organization consisting of ambulatory clinics and hospital sitesin [place], [place], [place] and [place]. This disclosure is being madepursuant to the Care Everywhere program and may not contain all information available regarding this patient. Last updated 18.[facility] [employer] Allergies Active Allergy Reactions Criticality Noted Date Comments Sulfa Drugs Rash Medium 05/04/2018 Medications * Be aware that medications may not be up to date on this document. Alwaysverify current medications with the patient. albuterol HFA (Proventil; Ventolin; Proair) 108 (90 Base) MCG/ACT inhaler Inhale 2 (two) puffs by mouth every 6 hours as needed Ok to use day of surgery Bring with day of surgery Active fluticasone-vilant zhanna (Breo Ellipta) 100-25 MCG/ACT inhaler Inhale 1 (one) puff by mouth once daily Ok to use day of surgery Active latanoprost (Xalatan) 0.005 % ophthalmic solution Instill 1 (one) drop into both eyes at bedtime 08/04/19 24 Active indapamide (Lozol) 1.25 MG tablet Take 1 (one) tablet by mouth once daily Hold day of surgery 07/15/19 24 Active losartan (Cozaar) 50 MG tablet Take 1 (one) tablet by mouth once daily Hold day of surgery 07/15/19 Active acetaminophen (Tylenol) 500 MG tablet Take 2 (two) tablets by mouth every 6 hours as needed for Fever or Pain Maximum allowable Acetaminophen amount = 4 Grams (4000 mg) / 24 hours. Ok to take day of surgery Active Other [facility]. 1 tab by mouth daily held since 08/08/23 Active Other Ligaplex 1 tab 4 daily held since 08/08/23 pre op Active Other K2 D3 3 tab by mouth daily Held since 08/08/23 pre op Active Other Antronex 3 tab by mouth daily held since 08/08/23 Active Other Internal cleanse 1 tab by mouth daily Held since 08/08/23 Active Other Nattokinase 1 tab 4 x a day held since 08/09/23 pre op Active Other Probiotic lactenc 1 tab 2 times a day Held since 08/08/23 pre op Active oxyCODONE, immediate release, (Roxicodone) 5 MG tabletIndications: Primary osteoarthritis of right knee Take 1 (one) tablet by mouth every 6 hours as needed for Pain 28 tablet 08/14/19 24 Active pregabalin (Lyrica) 75 MG capsule Take 1 (one) capsule by mouth 2 times daily 60 capsule 08/14/19 24 Active tiZANidine (Zanaflex) 4 MG tablet Take 1 (one) tablet by mouth every 6 hours as needed for Muscle Spasms 30 tablet 08/14/19 24 Active celecoxib (CeleBREX) 100 MG capsuleIndications :Acute Pain Take 1 (one) capsule by mouth 2 times daily Reasons: Acute Pain 120 capsule 08/14/19 24 Active Active Problems Problem Noted Date Diagnosed Date Primary osteoarthritis of right knee 08/13/2023 Social History Tobacco Use Types Packs/Day Years Used Date Smoking Tobacco: Never Passive Smoke Exposure: Never Smokeless Tobacco: Never Tobacco Cessation:Counseling Given: Not Answered Alcohol Use Standard Drinks/Week Comments Not Currently 0 (1 standard drink = 0.6 oz pur e alcohol) AUDIT-C Answer Date Recorded Q1: How often do you have a drink containing alcohol? Never 08/13/2023 Q2: How many drinks containi ng alcohol do you have on a typical day when you are drinking? Patient does not drink Q3: How often do you have si x or more drinks on one occasion? 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 Gender Identity Not on file Sexual Orientation Not on file Last Filed Vital Signs Vital Sign Reading Time Taken Comments Blood Pressure 153/69 08/16/2023 8:16 AM CDT 160 /77 p act Pulse 73 08/16/2023 8:16 AM CDT Temperature 36.3 C (97.3 F) 08/16/2023 7:38 AM CDT Respiratory Rate 16 08/16/2023 7:45 AM CDT Oxygen Saturation 99% 08/16/2023 8:16 AM CDT Inhaled Oxygen Concentration - - Weight 100.2 kg (221 lb) 08/13/2023 10:19 AM CDT Height 167.6 cm (5' 6) 08/13/2023 10:19 AM CDT Body Mass Index 35.67 08/13/2023 10:19 AM CDT Plan of Treatment Health Maintenance Due Date Last Done Comments BONE DENSITY TESTING 1950 COLOGUARD (AGES 45-75) - COL ON CA SCREENING 1949 COLON MONITORING 1949 COLONOSCOPY - COLON CA SCREENING 1949 CT COLONOGRAPHY - COLON CA SCREENING 1950 Colorectal Cancer Screening 1949 FIT - COLON CA SCREENING 1949 FLEX SIG - COLON CA SCREENING 1949 LIPID TESTING 1949 MAMMOGRAM 1949 HEPATITIS C SCREENING 02/28/1967 DTAP/TDAP/TD VACCINES (1 - Tdap) 1968 PNEUMOCOCCAL VACCINE 50+ (1 of 1 - PCV) 1999 ZOSTER VACCINE (1 of 2) 1999 COVID-19 VACCINE ( - 2023-2 5 season) 2024 Respiratory Syncytial Virus (RSV) Vaccine Pt: or over 60 yrs (1 - 1-dose 75+ series) 2024 DEPRESSION SCREENING 05/31/2024 MEDICARE AWV CALENDAR YEAR 2024 INFLUENZA VACCINE (#1) 2025 HEPATITIS B VACCINE Aged Out No longe r eligible based on patient's age to complete this topic HIB VACCINE Aged Out No longer eligi ble based on patient's age to complete this topic HPV VACCINE Aged Out No longer eligi ble based on patient's age to complete this topic MENINGOCOCCAL (Group B) VACC INE SHARED DECISION-MAKING Aged Out No longer eligibl e based on patient's age to complete this topic MENINGOCOCCAL GROUPS A/C/Y/W VACCINE Aged Out No longer eligible b ased on patient's age to complete this topic Medical Devices Implanted Type [facility] Specialist Device Identifier Shelf Expiration Date Model / Serial / Lot Cmpnt Ptlr 10mm 35mm Asym Tritanium Mtl Implanted:Qty: 1 on 08/13/2023 by Emile Arora DO at [facility] Right: Knee [employer] 06/30/2028 [id number] / / [id number] Cmpnt Fem Kn Rt 3 Crcte Rtn Bead Trthln Implanted:Qty: 1 on 08/13/2023 by Emile Arora DO at [facility] Right: Knee [employer] 06/29/2028 [id number] / / [id number] Bsplt Tib Trthln 3 Kn Tritanium Implanted:Qty: 1 on 08/13/2023 by Emile Arora DO at [facility] Right: Knee [employer] 06/01/2028 [id number] / / [id number] Ins Tib 3 11mm Kn X3 Crcte Sub Trthln Implanted:Qty: 1 on 08/13/2023 by Emile Arora DO at [facility] Right: Knee [employer] 10/23/2027 [id number] / / [id number] Vistaseal 10ml Implanted:Qty: 1 on 08/13/2023 by Emile Arora DO at [facility] Right: Knee [employer] 12/10/2024 [id number] / / [id number] Insurance AETNA MEDICARE ADV MEDICARE Advance Directives Documents on File Type Date Recorded Patient Keno Attendant Expl anation Adv Directive/Living Will/POA 08/17/2023 9:53 PM * Full Code (Latest Code Status on File) Date Activated Date Inactivated Comments 08/13/2023 5:40 PM 08/16/2023 2:25 PM Care Teams Community Outreach Advocate Relationship Specialty Start Date End Date Jonathan Cabral MD [address] [place] [address] PCP - General Internal Medicine 08/11/23
--- OUTSIDE RECORDS SUMMARY | 2024-12-11 08:24 | XMS_ITS | Clinical Summary ---
Author Organization [facility] [address] Address [address] [place] [address] Phone Care Team Providers Care Buzzle Buffer Name Role Phone Jonathan Cabral MD Primary Care Provider + [phone] Allergies Active Allergy Reactions Criticality Noted Date Comments Sulfa (Sulfonamide Antibiotics) Rash Medium 09/2017 Medications mupirocin (BACTROBAN) 2 % ointment 8 Active GAS PUMPER THYROID 15 mg tablet 9 Active digestive [...] 07/24/2024 Assessment & Plan (07/24/2024 12:14 PM HAND FUNNEL COATER): This is intermittently persistent and has been chronic since her stroke in 2014 This is a possible sequela vocal cord paralysis however I will send her for an ENT evaluation with laryngoscopy Mild persistent asthma without complication 12/30 Assessment & Plan (07/24/2024 12:15 PM HAND FUNNEL COATER): Continue Breo Ellipta 200 once daily She [...] 01/20/2024 Assessment & Plan (07/24/2024 12:14 PM HAND FUNNEL COATER): Continue PAP therapy with all sleep She [...] Conjugate PCV 13 05/31/2014 ZOSTER LIVE 05/31/2014 Surgical History Surgery Date Site/Laterality Comments IR FINE NEEDLE ASPIRATION W IMAGE GUIDANCE 10/12/2014 N/A DISCECTOMY 05/31/2000 - 05/30/2001 CHOLECYSTECTOMY 05/31/1997 - 05/30/1998 DILATION AND CURETTAGE, DIAG NOSTIC / THERAPEUTIC 05/31/1992 - 05/30/1993 REPLACEMENT TOTAL KNEE Right Medical History Medical History Date Comments Hypothyroidism Bronchitis, chronic (HCC) Family History Medical History Relation Name Comments Stroke Father's Sister Diabetes Maternal Grandfather Stroke Maternal Grandmother COPD Mother COD at age 76 Diabetes Sister Yojana Relation Name Status Comments Father's Sister Maternal Grandfather Maternal Grandmother Mother Sister Yojana Social History Tobacco Use Types Packs/Day Years Used Date Smoking Tobacco: Never Smokeless Tobacco: Never Tobacco Cessation:Counseling Given: Not Answered Comments No Sex and Gender Information Value Date Recorded Sex Assigned at Not on file Legal Sex Female 12:46 AM HAND FUNNEL COATER Gender Identity Not on file Sexual Orientation Not on file 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 Not on file Not on file Not on file Obstetrics History Para Term AB IAB SAB Ectopic Multiple Livin g Live Births 3 3 3 0 0 0 0 0 0 3 3 Date Outcome GA Total Labor Labor/2nd/3rd Weight Sex Type Anes PTL Kadi A1 A5 Name Clin Term Term Term Last Filed Vital Signs Vital Sign Reading Time Taken Comments Blood Pressure 120/70 07/24/2024 10:18 AM HAND FUNNEL COATER Pulse 76 07/24/2024 10:18 AM HAND FUNNEL COATER Temperature 35.9 C (96.6 F) 07/24/2024 10:18 AM HAND FUNNEL COATER Respiratory Rate 18 07/24/2024 10:18 AM HAND FUNNEL COATER Oxygen Saturation 96% 07/24/2024 10:18 AM HAND FUNNEL COATER Inhaled Oxygen Concentration - - Weight 101.6 kg (224 lb) 07/24/2024 10:18 AM HAND FUNNEL COATER Height 168.9 cm (5' 6.5) 07/24/2024 10:18 AM CS T Body Mass Index 35.61 07/24/2024 10:18 AM HAND FUNNEL COATER Plan of Treatment Health Maintenance Due Date Last Done Comments Colon Cancer Screening-Colonoscopy 1949 Depression Screening 1949 Fall Risk Assessment 1949 Hepatitis C Screening 1949 Osteoporosis Screening-Bone Density Scan 1949 Hepatitis B Screening 1967 Zoster Vaccine (2 of 3) 07/26/2014 05/31/2014 Pneumococcal vaccine 65+ (2 of 2 - PPSV23) 04/16/2016 02/20/2016, 05/31/2014 Well Visit 65+ 02/28/2020 02/27/2019, 02/17/2018 Influenza Vaccine (Season Ended) 2025 04/09/2022, 04/28/2021, 07/01/2020, Additional history exists DTaP/Tdap/Td Vaccine (2 - Td or Tdap) 02/12/2026 02/13/2016, 03/16/1994 Breast Cancer Screening-Mammogram Discontinued 023 Insurance UHC MEDICARE ADVANTAGE AENA MEDICARE AETNA MEDICARE Care Teams Buzzle Buffer Relationship Specialty Start Date End Date Jonathan Cabral MD [address] [place] [address] PCP - General Internal Medicine 09/28/22
[2024-12-11 09:36] LABS: Anion Gap 4 mmol/L (4-12); Blood Urea Nitrogen 24 mg/dL (7-17); Calcium 9.1 mg/dL (8.4-10.2); Carbon Dioxide 27 mmol/L (22-30); Chloride 110 mmol/L (98-107); Estimated Glomerular Filt Rate 55; Glucose 110 mg/dL (65-110); Osmolality Calculated 297 mOsm/kg (285-295); Potassium 4.6 mmol/L (3.4-5.0); Sodium 141 mmol/L (137-145)
== END 2024-12-11 08:19 | disposition home or self-care (01) ==
LOC: CHSLAB 08:21
PROVIDERS: PCP Internal Medicine; Visit Provider Internal Medicine
DX: E86.0 Dehydration (principal)
CPT/HCPCS: 36415; 80048

== ENCOUNTER 2025-01-08 13:07 | Outpatient (RCR) | payer MEDICARE, SELFPAY ==
--- NOTE | 2025-01-08 15:17 | OPREHPOC ---
Outpatient Therapy Plan of Care This is a Multidisciplinary Plan of Care that may contain components documented by all disciplines (PT, OT, and ST.) PT Problem 1 PT Problem #1 Knowledge Deficit PT Goal 1 Goal / Goal Update independent and compliant with HEP Target Visit 6 PT Problem 2 PT Problem #2 Pain PT Goal 1 Goal / Goal Update decrease pain at worst to 3/10 or less in the R shoulder Target Visit 12 PT Problem 3 PT Problem #3 Impaired Range of Motion PT Goal 1 Goal / Goal Update 150 degrees or better active R shoulder flex Target Visit 12 PT Problem 4 PT Problem #4 Impaired Strength PT Goal 1 Goal / Goal Update 4/5 or better bilateral shoulder strength overall 4+/5 or better bilateral elbow strength Target Visit 12 PT Problem 5 PT Problem #5 Impaired Functional Mobility PT Goal 1 Goal / Goal Update quick dash to display 20% or less functional deficits patient to lift 5lbs overhead to tall shelfs to improve independence in the home Target Visit 12
--- NOTE | 2025-01-08 15:17 | PTOPEVAL1 ---
Assessment and note entered by JT File, PT Evaluation Information Assessment Status Evaluation ICD-10 Condition Codes (PT) Pain in right shoulder M25.511 Onset 12/11/24 Subjective Information patient reports she has been having pain in the R shoulder for about 1 month. she reports had joined several exercise classes for strengthening that included overhead lifting in the bilateral shoulders. she reports some of this was performed in the pool. she reports the shoulder might be a bit better than it was a week ago or so. she reports reaching overhead is the worst activity. she reports she also hesitates to perform some routine activities due to her pain in the R shoulder. Reported Pain Level Pain Score 3: Self Report Assessment PT Clinical Summary mrs. stanford is a 74 yo woman who presents to skilled PT services for evaluation and treatment of her R shoulder pain. she presents today with decreased R shoulder strength, decreased R shoulder ROM, and impaired functional activity performance. she displays signs and symptoms consistent with a R shoulder RTC tendonitis secondary to impingement. continued skilled PT is indicated to improve her objective/functional deficits and progress towards a return to her prior level functional activity performance/ quality of life. Plan of Care Interventions Electrical Stimulation,Hot Pack/Cold Pack,Manual Therapy,Neuro Re-education,Patient/Caregiver Education,Therapeutic Activities,Therapeutic Exercise,Other Other Interventions dry needling PT Services Indicated Yes Treatment Frequency and 3x weekly for 12 visits Duration These treatments will address the objective and functional deficits as defined above. The patient will be advanced safely and appropriately in order for the patient to progress towards his/her prior level of function. Additional exercises will be introduced and as well as a comprehensive home exercise program upon discharge, if needed, ?to ensure carryover of functional gains achieved in the clinic. This treatment plan has been reviewed and agreement upon by the patient.
--- NOTE | 2025-01-23 14:01 | PCPTNOTE ---
Cancelled session. Reports she cannot see the chiropractor and PT in the same day.
--- NOTE | 2025-02-02 10:53 | OPREHPOC ---
Outpatient Therapy Plan of Care This is a Multidisciplinary Plan of Care that may contain components documented by all disciplines (PT, OT, and ST.) PT Problem 1 PT Problem #1 Knowledge Deficit PT Goal 1 Goal / Goal Update independent and compliant with HEP Target Visit 6 Progress Met PT Problem 2 PT Problem #2 Pain PT Goal 1 Goal / Goal Update decrease pain at worst to 3/10 or less in the R shoulder Target Visit 12 Progress Not Met PT Problem 3 PT Problem #3 Impaired Range of Motion PT Goal 1 Goal / Goal Update 150 degrees or better active R shoulder flex Target Visit 12 Progress Met PT Problem 4 PT Problem #4 Impaired Strength PT Goal 1 Goal / Goal Update 4/5 or better bilateral shoulder strength overall 4+/5 or better bilateral elbow strength Target Visit 12 PT Problem 5 PT Problem #5 Impaired Functional Mobility PT Goal 1 Goal / Goal Update quick dash to display 20% or less functional deficits patient to lift 5lbs overhead to tall shelfs to improve independence in the home Target Visit 12 Progress Not Met
--- NOTE | 2025-02-02 10:54 | PTOPPROGNS ---
Assessment and note entered by JT File, PT Evaluation Information Assessment Status Progress ICD-10 Condition Codes (PT) Pain in right shoulder M25.511 Onset 12/11/24 Subjective Information patient reports she has the most difficulty still with trying to reach up into a tall cabinet at home. she reports she has to use a foot stool and slide it around as she needs. she reports since starting PT, she reports she feels better at rest and her mobility is a bit better. Assessment PT Clinical Summary mrs. stanford presents to skilled PT services for her 10th skilled therapy visit for the R shoulder pain. she reports less pain at rest, but still difficulty with lifting and reaching into tall cabinets. she displays improve active rom of the R shoulder today, and ability to lift 1.1lb ball from waist to overhead level shelf in flexion and D2 pattern. continued skilled PT is indicated to continue to progress her objective/functional deficits to achieve goals. Plan of Care Interventions Electrical Stimulation,Hot Pack/Cold Pack,Manual Therapy,Neuro Re-education,Patient/Caregiver Education,Therapeutic Activities,Therapeutic Exercise,Other Other Interventions dry needling PT Services Indicated Yes Treatment Frequency and continue per initial POC Duration These treatments will address the objective and functional deficits as defined above. The patient will be advanced safely and appropriately in order for the patient to progress towards his/her prior level of function. Additional exercises will be introduced and as well as a comprehensive home exercise program upon discharge, if needed, ?to ensure carryover of functional gains achieved in the clinic. This treatment plan has been reviewed and agreement upon by the patient.
--- NOTE | 2025-02-07 11:59 | OPREHPOC ---
Outpatient Therapy Plan of Care This is a Multidisciplinary Plan of Care that may contain components documented by all disciplines (PT, OT, and ST.) PT Problem 1 PT Problem #1 Knowledge Deficit PT Goal 1 Goal / Goal Update independent and compliant with HEP Target Visit 6 Progress Met PT Problem 2 PT Problem #2 Pain PT Goal 1 Goal / Goal Update decrease pain at worst to 3/10 or less in the R shoulder Target Visit 12 Progress Not Met PT Problem 3 PT Problem #3 Impaired Range of Motion PT Goal 1 Goal / Goal Update 150 degrees or better active R shoulder flex Target Visit 12 Progress Met PT Problem 4 PT Problem #4 Impaired Strength PT Goal 1 Goal / Goal Update 4/5 or better bilateral shoulder strength overall -met 4+/5 or better bilateral elbow strength -met Target Visit 12 Progress Met PT Goal 2 Goal / Goal Update Pt to improve bilat gross shoulder strength to 5/5 . Target Visit 20 PT Problem 5 PT Problem #5 Impaired Functional Mobility PT Goal 1 Goal / Goal Update quick dash to display 20% or less functional deficits patient to lift 5lbs overhead to tall shelfs to improve independence in the home -not met Target Visit 12 Progress Not Met
--- NOTE | 2025-02-07 11:59 | PTOPPROG ---
Assessment and note entered by Ophelia Merritt, PT Evaluation Information Assessment Status Progress ICD-10 Condition Codes (PT) Pain in right shoulder M25.511 Onset 12/11/24 Subjective Information Ani reports feeling like PT has been helping her and she has been getting better slowly. Still experiences difficulty with reaching into cabinets especially when lifting dishes out of her cabinets. She feels like her motion has improved but that she's still not strong enough to lift things safely from her cabinets. She has continued to perform her exercises at home. Assessment PT Clinical Summary Mrs. Salgado has attended 12 skilled PT visits for R shoulder pain. She has demonstrated improvements in her R shoulder AROM and strength and has met goals addressing these deficits, however her shoulder strength is still not sufficient enough to perform household tasks like reaching into cabinets and lifting dishes in/out of them. She will benefit from additional skilled PT intervention to reduce pain and make further improvements in shoulder strength to allow her to perform functional reaching tasks at home with improved performance and reduced pain. Plan of Care Interventions Electrical Stimulation,Hot Pack/Cold Pack,Manual Therapy,Neuro Re-education,Patient/Caregiver Education,Therapeutic Activities,Therapeutic Exercise,Other Other Interventions dry needling PT Services Indicated Yes Treatment Frequency and 2x/week for 8 additional visits Duration These treatments will address the objective and functional deficits as defined above. The patient will be advanced safely and appropriately in order for the patient to progress towards his/her prior level of function. Additional exercises will be introduced and as well as a comprehensive home exercise program upon discharge, if needed, ?to ensure carryover of functional gains achieved in the clinic. This treatment plan has been reviewed and agreement upon by the patient.
--- NOTE | 2025-03-09 14:34 | OPREHPOC ---
Outpatient Therapy Plan of Care This is a Multidisciplinary Plan of Care that may contain components documented by all disciplines (PT, OT, and ST.) PT Problem 1 PT Problem #1 Knowledge Deficit PT Goal 1 Goal / Goal Update independent and compliant with HEP Target Visit 6 Progress Met PT Problem 2 PT Problem #2 Pain PT Goal 1 Goal / Goal Update decrease pain at worst to 3/10 or less in the R shoulder Target Visit 12 Progress Partially Met PT Problem 3 PT Problem #3 Impaired Range of Motion PT Goal 1 Goal / Goal Update 150 degrees or better active R shoulder flex Target Visit 12 Progress Met PT Problem 4 PT Problem #4 Impaired Strength PT Goal 1 Goal / Goal Update 4/5 or better bilateral shoulder strength overall -met 4+/5 or better bilateral elbow strength -met Target Visit 12 Progress Met PT Goal 2 Goal / Goal Update Pt to improve bilat gross shoulder strength to 5/5 . Target Visit 20 Progress Not Met PT Problem 5 PT Problem #5 Impaired Functional Mobility PT Goal 1 Goal / Goal Update quick dash to display 20% or less functional deficits. met patient to lift 5lbs overhead to tall shelfs to improve independence in the home -not met Target Visit 12 Progress Partially Met
--- NOTE | 2025-03-09 14:34 | PTOPDC ---
Assessment and note entered by JT File, PT Evaluation Information Assessment Status Discharge ICD-10 Condition Codes (PT) Pain in right shoulder M25.511 Onset 12/11/24 Subjective Information patient reports the R shoulder is better. she reports the only issue she really has with the shoulder now is from sitting too long. she reports getting up and being active will relieve the pain that comes from sitting too long. Reported Pain Level Pain Score 0: Self Report Assessment PT Clinical Summary mrs. stanford presents to skilled PT for her 20th skilled PT visit. she displays improved strength today and maintained rom. she also displays improved R UE functional reach behind the head and back. she displays less than 20% functional deficits per the quick dash. as of this date, she will DC to an independent [facility] Plan of Care PT Services Indicated Yes
== END 2025-03-09 21:00 | disposition home or self-care (01) ==
LOC: CHSPT 13:07
PROVIDERS: PCP Nurse Practitioner Family; Visit Provider Nurse Practitioner Family
DX: M25.511 Pain in right shoulder (principal)
CPT/HCPCS: 97014; 97110; 97112; 97140; 97161; 97530; G0283

== ENCOUNTER 2025-03-01 13:56 | Outpatient (CLI) | payer MEDICARE, SELFPAY ==
--- OUTSIDE RECORDS SUMMARY | 2024-04-15 16:00 | XMS_ITS ---
Author Organization [facility] Address [address] [place] [address] Care Team Providers Care Staff Toxicologist Name Role Phone Kristine Farooq Primary Care Provider Migration, Provider Unavailable Unavailable REASON FOR VISIT Multum To Medispan Conversion Encounter Medications Medication SIG (Take, Route, Frequency, Duration) Notes Start Date End Date Status Losartan Potassium 50 MG Tablet 1 tab(s) orally once a day; Duration: 30 days 08/06/2023 Active Encounters Encounter [facility] Date [facility] [address] [facility] [place] [id number] [facility] Provider Migration Plan Of Treatment No Information Progress Notes * Ani SALGADODOB:1950 (74 yo F)Acc No.[id number]:04/15/2024 Patient: Ani Peacock Provider: Ed Osorio :1950 A ge:74 Y S ex:Female Date:04/15/2024 Phone: Address:[address] [place], [place] [id number] Pcp:Kristine Farooq Subjective: * Chief Complaints: * M ultum To Medispan Conversion Encounter * Medications: T akingLosartan Potassium 50 MG Tablet 1 tab(s) orally once a day Taking Losartan Potassium 50 MG Tablet 1 tab(s) orally once a day * Electronic signature of Prov ider Migration on 03/01/2025 at 02:01 PM CDT Sign off status: Pending * Provider: Ed Osorio Date: 06/15/2023 Generated for Yaeli ng/Faxing/eTransmitting on: 02:01 PM CDT
--- NOTE | ~2025-03-01 | MM_ITS ---
EXAMINATION: MM screening evelio BI w jolie HISTORY: Screening TECHNIQUE: Craniocaudal and mediolateral oblique 3-D tomosynthesis images were obtained and synthetic 2-D images were generated. CAD analysis was submitted and interpreted. COMPARISON: Comparison to multiple prior studies sequentially, with oldest reviewed study dated 11/27/2016. BREAST PARENCHYMAL COMPOSITION: Not Dense: The breasts are almost entirely fatty. FINDINGS: There is no evidence of suspicious mass, calcification, or architectural distortion to suggest malignancy in either breast. There has been no suspicious interval change. IMPRESSION: 1. No mammographic evidence of malignancy. 2. Recommend routine screening mammography in one year. BI-RADS Category 1: Negative Reviewed, dictated and finalized at location C.
--- OUTSIDE RECORDS SUMMARY | 2025-03-01 14:01 | XMS_ITS | Clinical Summary ---
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
--- OUTSIDE RECORDS SUMMARY | 2025-03-01 14:02 | XMS_ITS | Clinical Summary ---
Author Organization [facility] [place] [address] Address [address] [place] [address] Phone Care Team Providers Care Slasher Runner Name Role Phone Jonathan Cabral MD Primary Care Provider [phone] Allergies Active Allergy Reactions Criticality Noted Date Comments Sulfa (Sulfonamide Antibiotics) Rash Medium 09/2017 Trimethoprim Unknown 07/23/2023 Medications mupirocin (BACTROBAN) 2 % ointment 8 Active SUGAR MIXER THYROID 15 mg tablet 9 Active digestive enzymes tablet Take by mouth A ctive VITAMIN B COMPLEX ORAL Take 1 tablet by mouth daily Active estradiol (ESTRACE) 0.01 % (0.1 mg/gram) vaginal creamIndications :Atrophic Vaginitis associated with Menopause Apply nightly to vagina for 1 week, then Wednesday/ y/ Wednesday 42.5 g 5 9 Active Additional Information Patient not taking.Reported on 01/22/2025 latanoprost (XALATAN) 0.005 % ophthalmic solution latanoprost [...] puff daily 60 each 6 5 Active omeprazole (PriLOSEC) 40 mg capsule 5 Active lisinopriL (PRINIVIL,ZESTRI L) 20 mg tablet 5 Active Active Problems Problem Noted Date Diagnosed Date Hoarseness 07/24/2024 Assessment & Plan (01/22/2025 11:59 AM CDT): This is intermittently persistent and has been chronic since her stroke in 2014 She has been evaluated by ENT with no sign of malignancy. She is awaiting further testing and is on GERD protocol Assessment & Plan (07/24/2024 12:14 PM INVENTORY CONTROL CLERK): This is intermittently persistent and has been chronic since her stroke in 2014 This is a possible sequela vocal cord paralysis however I will send her for an ENT evaluation with laryngoscopy Mild persistent asthma without complication 12/30 Assessment & Plan (01/22/2025 11:58 AM CDT): Continue Breo Ellipta 200 once daily at the same time She is aware to rinse and spit after use Continue albuterol 2 puffs every 4-6 hours as needed only, she is aware of indications for use Avoid triggers She is not having frequent exacerbations I still do not have an eosinophil count We have discussed signs and symptoms that would require earlier evaluation or change to her plan of care Assessment & Plan (07/24/2024 12:15 PM INVENTORY CONTROL CLERK): Continue Breo Ellipta 200 once daily She [...] Obstructive sleep apnea 01/20/2024 Assessment & Plan (01/22/2025 12:01 PM CDT): Continue PAP therapy with all sleep I have reinforced thorough cleaning and replacement of all supplies She is aware of the risks of uncorrected sleep apnea Continue to follow with sleep medicine Assessment & Plan (07/24/2024 12:14 PM INVENTORY CONTROL CLERK): Continue PAP therapy with all sleep She is aware of the risks of uncorrected sleep apnea Continue to follow with sleep medicine Assessment & Plan (01/20/2024 1:04 PM CDT): Continue PAP therapy with all sleep She is aware of the risks of uncorrected sleep apnea Follow with sleep medicine History of intracranial hemorrhage 03/26/2023 Hypertension 02/17/2018 Thyroid disease 02/17/2018 Encounters Date Type Department Care Team Description 01/22/2025 9:30 AM CDT Office Visit [facility] Pulmonary at [address] [place] [id number] Tamela Judd, [place] Mild persistent asthma without complication (Primary Dx); Obstructive sleep apnea; Hoarseness from Last 3 Months Immunizations Immunization Administration Dates Next Due Pneumococcal [...] Tobacco: Never Tobacco Cessation:Counseling Given: Not Answered AUDIT-C Answer Date Recorded Frequency of Alcohol Consumption Not on file 01/22/2025 Q2: How many drinks containi ng alcohol do you have on a typical day when you are drinking? Patient does not drink Frequency of Binge Drinking Not on file 12/30 Comments No Sex and Gender Information Value Date Recorded Sex Assigned at Not on file Legal Sex Female 12:46 AM INVENTORY CONTROL CLERK Gender Identity Not on file Sexual Orientation [...] Sign Reading Time Taken Comments Blood Pressure 144/78 01/22/2025 9:33 AM CDT Pulse 68 01/22/2025 9:33 AM CDT Temperature 36.6 C (97.9 F) 01/22/2025 9:33 AM CDT Respiratory Rate 14 01/22/2025 9:33 AM CDT Oxygen Saturation 96% 01/22/2025 9:33 AM CDT Inhaled Oxygen Concentration - - Weight 103.2 kg (227 lb 9.6 oz) 01/22/2025 9:33 AM CDT Height 168.9 cm (5' 6.5) 01/22/2025 9:33 AM CDT Body Mass Index 36.19 01/22/2025 9:33 AM CDT Plan of Treatment Health Maintenance Due Date Last Done Comments Colon Cancer Screening-Colonoscopy 1950 Depression Screening 1950 Fall Risk Assessment 1950 Hepatitis C Screening 1950 Osteoporosis Screening-Bone Density Scan 1949 Hepatitis B Screening 1967 Zoster Vaccine (2 of 3) 07/26/2014 05/31/2014 Pneumococcal vaccine 65+ (2 of 2 - PPSV23, PCV20, or PCV21) 04/16/2016 02/20/2016, 05/31/2014 Well Visit 65+ 02/28/2020 02/27/2019, 02/17/2018 Influenza Vaccine (#1) 2025 , 04/28/2021, 07/01/2020, Additional history exists DTaP/Tdap/Td Vaccine (2 - Td or Tdap) 02/12/2026 02/13/2016, 03/16/1994 Breast Cancer Screening-Mammogram Discontinued 023 Insurance UHC MEDICARE ADVANTAGE [facility] MEDICARE AETNA MEDICARE Care Teams Slasher Runner Relationship Specialty Start Date End Date Jonathan Cabral MD [address], [place] [id number] PCP - General Internal Medicine 09/28/22
--- OUTSIDE RECORDS SUMMARY | 2025-03-01 14:02 | XMS_ITS | Clinical Summary ---
Author Organization [facility] Address [address] [place] [address] Care Team Providers Care Auto Body Repairer Fiberglass Name Role Phone Jonathan Cabral MD Primary Care Provider [phone] Allergies Active Allergy Reactions Criticality Noted Date [...] Bilateral primary osteoarthritis of knee 020 Hyperparathyroidism ([facility]) 05/04/2018 Hypertension 02/17/2018 Stroke ([facility]) 09/28/2014 Overview (02/15/2023): loss sensation left arm [...] on file Legal Sex Female 10:33 PM SKY CAP Gender Identity Not on file Sexual Orientation Not on file Last Filed Vital Signs Vital Sign Reading Time Taken Comments Blood Pressure 158/79 05/19/2023 9:03 AM SKY CAP Pulse 62 05/19/2023 9:03 AM SKY CAP Temperature 36.4 C (97.6 F) 05/19/2023 9:03 AM SKY CAP Respiratory Rate 16 05/19/2023 9:03 AM SKY CAP Oxygen Saturation 96% 05/19/2023 9:03 AM SKY CAP Inhaled Oxygen Concentration - - Weight 95.3 kg (210 lb) 05/12/2023 9:41 AM SKY CAP Height 167.6 cm (5' 6) 05/12/2023 9:41 AM SKY CAP Body Mass Index 33.89 05/12/2023 9:41 AM SKY CAP Plan of Treatment Health Maintenance Due Date Last Done Comments Colorectal Cancer Screening Colonoscopy (10 Years) 1949 Hepatitis C 1967 DTaP, Tdap and Td Vaccines ( 1 - Tdap) 1968 Annual Medicare Wellness Visit 2014 Dexa Scan (General) 2014 Zoster Vaccines (2 of 3) 07/26/2014 05/31/2014 Pneumococcal Vaccine: 50+ Years (2 of 2 - PPSV23) 02/19/2017 02/20/2016, 05/31/2014 RSV Immunization or 60+ Years (1 - 1-dose 75+ series) 2024 COVID-19 Vaccine ( - 2023-2 5 season) 2025 Meningococcal B Vaccine Aged Out No l onger eligible based on patient's age to complete this topic Meningococcal Vaccine Aged Out No elliot reggie eligible based on patient's age to complete this topic RSV Immunizations Under 20 Months Aged Out No longer eligible b ased on patient's age to complete this topic Medical Devices Implanted Type Area Prop Worker Device Identifier Shelf Expiration Date Model / Serial / Lot Tecnis Dcbpp 18.5 Implanted:Qty: 1 on 02/17/2023 by Kailyn Valentin MD at [facility] Right: Lens [id number] 12/17/2025 DCB00 / [id number] / [employer] Simplicity Delivery System Implanted:Qty: 1 on 05/19/2023 by Kailyn Valentin MD at [facility] Left: Eye [id number] 12/27/2025 [facility] / [id number] / Insurance MED REPLACE [facility] MEDICARE [facility] MEDICARE Advance Directives * Full Code (Latest Code Status on File) Date Activated Date Inactivated Comments 02/17/2023 10:57 AM 02/17/2023 2:05 PM Care Teams Auto Body Repairer Fiberglass Relationship Specialty Start Date End Date Jonathan Cabral MD [address] [place] [address] PCP - General INTERNAL MEDICINE 03/19/20
--- OUTSIDE RECORDS SUMMARY | 2025-03-01 14:02 | XMS_ITS | Patient Health Record ---
Author Organization [facility] Address [address] [place] [address] Care Team Providers Care Chiropractic Physician Name Role Phone Kristine Farooq Primary Care Provider Migration, Provider Unavailable Unavailable Allergies No Known Allergies Reason For Referral No Information Medications Medication SIG (Take, Route, Frequency, Duration) Notes Start Date End Date Status Losartan Potassium 50 MG Tablet 1 tab(s) orally once a day; Duration: 30 days 08/06/2023 Active Problems Problem Type SNOMED Code ICD Code Onset Dates Problem Status W/U Status Risk Notes Problem Hypothyroidism (79454737) Hypothyroidism, unspecified (E03.9) Active confirmed Problem Obesity (943303662) Obesity, unspecified (E66.9) Active confirmed Problem Essential hypertension (96848894) Essential (primary) hypertension (I10) Active confirmed Problem Hyperlipidemia (66250139) Hyperlipidemia, unspecified (E78.5) Active confirmed Encounters Encounter Location Date Provider Diagnosis [facility] [address] [place], [place] [id number] 04/15/2024 Provider Migration Plan Of Treatment No Information Insurance Providers Payer Name Payer Address Payer Phone Subscriber Number Group Number Insured Name Patient Relationship to Insured Coverage Start Date Coverage End Date A[employer] [address] [place], [place] [id number] [phone] [id number] Naomi Ani Self - patient is the insured Medical (General) History Medical History History ICD Code Essential (primary) hypertension I10 Hyperlipidemia, unspecified E78.5 Hypothyroidism, unspecified E03.9 Personal history of transien t ischemic attack (TIA), and cerebral infarction without residual deficits Z86.73
--- OUTSIDE RECORDS SUMMARY | 2025-03-01 14:02 | XMS_ITS | Clinical Summary ---
Author Organization [facility] Address [address] [place] [address] Care Team Providers Care Continuous Process Machine Operator Name Role Phone Jonathan Cabral MD Primary Care Provider [phone] Source Comments [facility],non-owned Affiliates and Associated Physician Practices is amultiple site organization consisting of ambulatory clinics and hospital sitesin [place], [place], [place] and [place]. This disclosure is being madepursuant to the Care Everywhere program and may not contain all information available regarding this patient. Last updated 18.[facility] [employer] Allergies Active Allergy Reactions Criticality Noted Date [...] to take day of surgery Active Other [facility] health. 1 tab by mouth daily held [...] on file Legal Sex Female 8:40 AM AIRPORT ELECTRICIAN Gender Identity Not on file Sexual Orientation [...] 1999 ZOSTER VACCINE (1 of 2) 1999 Respiratory Syncytial Virus (RSV) Vaccine Pt: or over 60 yrs (1 - 1-dose 75+ series) 2024 DEPRESSION SCREENING 05/31/2024 MEDICARE AWV CALENDAR YEAR 2024 COVID-19 VACCINE (1 - 2023-2 5 season) 2025 INFLUENZA VACCINE (#1) 2025 HEPATITIS B VACCINE [...] this topic Medical Devices Implanted Type Area Multi Media Specialist Device Identifier Shelf Expiration Date Model / Serial / Lot Cmpnt Ptlr 10mm 35mm Asym Tritanium Mtl Implanted:Qty: 1 on 08/13/2023 by Emile Arora DO at [facility] Right: Knee [employer] 06/30/2028 [id number] / / [id number] Cmpnt Fem Kn Rt 3 Crcte Rtn Bead Trthln Implanted:Qty: 1 on 08/13/2023 by Emile Arora DO at [facility] Right: Knee [employer] 06/29/2028 [id number] / / [id number] Bsplt Tib Trthln 3 Kn Tritanium Implanted:Qty: 1 on 08/13/2023 by Emile Arora DO at [facility] Right: Knee [employer] 06/01/2028 [id number] / / [id number] Ins Tib 3 11mm Kn X3 Crcte Sub Trthln Implanted:Qty: 1 on 08/13/2023 by Emiel Arora DO at [facility] Right: Knee [employer] 10/23/2027 [id number] / / [id number] Vistaseal 10ml Implanted:Qty: 1 on 08/13/2023 by Eimle Arora DO at [facility] Right: Knee [employer] 12/10/2024 [id number] / / [id number] Insurance AET[employer] MEDICARE ADV MEDICARE Advance Directives Documents on File Type Date Recorded Patient Network Operations Project Manager Expl anation Adv Directive/Living Will/POA 08/17/2023 9:53 PM * Full Code (Latest Code Status on File) Date Activated Date Inactivated Comments 08/13/2023 5:40 PM 08/16/2023 2:25 PM Care Teams Continuous Process Machine Operator Relationship Specialty Start Date End Date Jonathan Cabral MD [address] [place] [address] PCP - General Internal Medicine 08/11/23
--- OUTSIDE RECORDS SUMMARY | 2025-03-01 14:02 | XMS_ITS | Clinical Summary ---
Author Organization [facility] Address [address] [place] [address] Phone Care Team Providers Care Motorcycle Maker Name Role Phone Jonathan Cabral MD Primary [...] Comments Blood Pressure 142/82 07/18/2018 1:21 PM PHYSICIAN PRACTICE MANAGER Pulse 80 07/18/2018 1:21 PM PHYSICIAN PRACTICE MANAGER Temperature 36.7 C (98 F) 06/23/2018 3:20 PM PHYSICIAN PRACTICE MANAGER Respiratory Rate 16 06/23/2018 3:20 PM PHYSICIAN PRACTICE MANAGER Oxygen Saturation 95% 06/23/2018 3:20 PM PHYSICIAN PRACTICE MANAGER Inhaled Oxygen Concentration - - Weight 79.8 kg (176 lb) 07/18/2018 1:21 PM PHYSICIAN PRACTICE MANAGER Height 167.6 cm (5' 6) 07/18/2018 1:21 PM PHYSICIAN PRACTICE MANAGER Body Mass Index 28.41 07/18/2018 1:21 PM PHYSICIAN PRACTICE MANAGER Plan of Treatment Health Maintenance Due Date Last Done Comments DTAP/TDAP/TD VACCINES (1 - Tdap) 1968 COLORECTAL SCREENING 1994 Colorectal Cancer Screening 1994 FIT-DNA Q 3 years 1994 FIT/FOBT Q 1 year 1994 Flex Sig/CT Colonography Q 5 years 1994 OSTEOPOROSIS SCREENING 2014 PNEUMOCOCCAL VACCINE 50+ YEA RS (2 of 2 - PPSV23, PCV20, or PCV21) 07/26/2014 05/31/2014 ZOSTER VACCINE (2 of 3) 07/26/2014 05/31/2014 RSV VACCINE (60+ or ) (1 - 1-dose 75+ series) 2024 INFLUENZA VACCINE (#1) 2024 Insurance RX [employer] RX Member Subscriber Plan / Payer (Ef fective for All Dates) Name:Ani Salgado Relation to Subscriber:Self Name:Ani Salgado Payer ID:Not on file Group ID:[id number] Type:RX Medicare Part D Address: [address] [place] AETNA PPO MCR Advance Directives For more information, please contact: [phone] Documents on File Type Date Recorded Patient Attendant Honor Bar Expl anation Advance Directive POA 06/23/2018 9:08 AM A dvance Directive POA * Full Code (Latest Code Status on File) Date Activated Date Inactivated Comments 06/23/2018 10:50 AM 06/23/2018 5:59 PM * Full Code Date Activated Date Inactivated Comments 06/23/2018 8:40 AM 06/23/2018 10:50 AM * Full Code Date Activated Date Inactivated Comments 06/23/2018 8:30 AM 06/23/2018 8:40 AM Care Teams Motorcycle Maker Relationship Specialty Start Date End Date Jonathan Cabral MD [address] [place] [address] PCP - General Internal Medicine 04/20/18
--- OUTSIDE RECORDS SUMMARY | 2025-03-01 14:02 | XMS_ITS | Data Portability ---
Author Organization [place] - [facility], Main Office Address [address] [place] [address] Care Team Providers Care Grinder Outside Diameter Name Role Phone HATCHMILLICYVENKAT Primary Care Provider [phone] Assessment No assessment recorded. Plan of Treatment Reminders Order Date Submit Date Provider Last Modified By Organization Details Last Modified Time Details Appointments None recorded. Lab None recorded. Referral None recorded. Procedures None recorded. Surgeries None recorded. Imaging None recorded. Medication Orders Breo Ellipta 200 mcg-25 mcg/dose powder for inhalation 2022 023 [facility], [facility] [employer], [place], [address], 3 16:14:36 albuterol sulfate 2.5 mg/3 mL (0.083 %) solution for nebulizatio n 2022 023 [facility], [address] [place] [address], [place], [address], 3 16:14:33 albuterol sulfate HFA 90 mcg/actuati on aerosol inhaler 2022 023 [facility], [facility] [employer], [place], [address], 3 16:14:35 Breo Ellipta 200 mcg-25 mcg/dose powder for inhalation 2022 023 [facility], [facility] [employer], [place], [address], 12:06:12 Patient TargetsNo targets recorded. Patient InstructionsNo instructions recorded. Reason for Referral None Reported. Results Created Date Observation Date Name Description Value Unit Range Abnormal Flag Note LastModifiedBy Organization Detail LastModifiedTime 09/11/1909/11/2022 COMPR EHENS BO METAB OLIC PANEL glucose 91 mg/dL 65-99 normal Fasti ng refer ence inter gali Not Available [address], [address], 09/11/2022 16:50:23 09/11/19 23 09/11/2022 COMPR EHENS BO METAB OLIC PANEL urea nitrogen (BUN) 23 mg/dL 7-25 normal Not Available [address], [address], 09/11/2022 16:50:23 09/11/19 23 09/11/2022 COMPR EHENS BO METAB OLIC PANEL creatinine 0.64 mg/dL 0.60-1 .00 normal Not Available [address], [address], 09/11/2022 16:50:23 09/11/19 23 09/11/2022 COMPR EHENS [...] kdoqi /gfr% 5Fcal culat or Not Available [address], [address], 09/11/2022 16:50:23 09/11/19 23 09/11/2022 COMPR EHENS BO METAB OLIC PANEL BUN/creatini ne ratio NOT APPLIC ABLE (calc ) 6-22 Not Available [address], [address], 09/11/2022 16:50:23 09/11/19 23 09/11/2022 COMPR EHENS BO METAB OLIC PANEL sodium 144 mmol/ L 135-14 6 normal Not Available [address], [address], 09/11/2022 16:50:23 09/11/19 23 09/11/2022 COMPR EHENS BO METAB OLIC PANEL potassium 4.4 mmol/ L 3.5-5. 3 normal Not Available [address], [address], 09/11/2022 16:50:23 09/11/19 23 09/11/2022 COMPR EHENS BO METAB OLIC PANEL chloride 108 mmol/ L 98-110 normal Not Available [address], [address], 09/11/2022 16:50:23 09/11/19 23 09/11/2022 COMPR EHENS BO METAB OLIC PANEL carbon dioxide 27 mmol/ L 20-32 normal Not Available [address], [address], 09/11/2022 16:50:23 09/11/19 23 09/11/2022 COMPR EHENS BO METAB OLIC PANEL calcium 9.6 mg/dL 8.6-10 .4 normal Not Available [address], [address], 09/11/2022 16:50:23 09/11/19 23 09/11/2022 COMPR EHENS BO METAB OLIC PANEL protein, total 6.5 g/dL 6.1-8. 1 normal Not Available [address], [address], 09/11/2022 16:50:23 09/11/19 23 09/11/2022 COMPR EHENS BO METAB OLIC PANEL albumin 4.0 g/dL 3.6-5. 1 normal Not Available [address], [address], 09/11/2022 16:50:23 09/11/19 23 09/11/2022 COMPR EHENS BO METAB OLIC PANEL globulin 2.5 g/dL_ (calc ) 1.9-3. 7 normal Not Available [address], [address], 09/11/2022 16:50:23 09/11/19 23 09/11/2022 COMPR EHENS BO METAB OLIC PANEL albumin/glob ulin ratio 1.6 (calc ) 1.0-2. 5 normal Not Available [address], [address], 09/11/2022 16:50:23 09/11/19 23 09/11/2022 COMPR EHENS BO METAB OLIC PANEL bilirubin, total 0.5 mg/dL 0.2-1. 2 normal Not Available [address], [address], 09/11/2022 16:50:23 09/11/19 23 09/11/2022 COMPR EHENS BO METAB OLIC PANEL alkaline phosphatase 39 U/L 37-153 normal Not Available [address] [address] [place], [address], 09/11/2022 16:50:23 09/11/19 23 09/11/2022 COMPR EHENS BO METAB OLIC PANEL AST 14 U/L 10-35 normal Not Available [address], [address], 09/11/2022 16:50:23 09/11/19 23 09/11/2022 COMPR EHENS BO METAB OLIC PANEL ALT 15 U/L 6-29 normal Not Available [address], [address], 09/11/2022 16:50:23 09/11/19 23 09/11/2022 COMPR EHENS BO METAB OLIC PANEL copy(ies) sent to: [facility] [address] [place] [address] Not Available [address] [address] [place], [address], 09/11/2022 16:50:23 09/11/19 23 09/11/2022 ALBUM IN, RANDO M URINE W/CRE ATINI NE creatinine, random urine 52 mg/dL 20-275 normal Not Available [address] [address] [place], [address], 09/11/2022 16:50:23 09/11/19 23 09/11/2022 ALBUM IN, RANDO M URINE W/CRE ATINI NE albumin, urine 1.6 mg/dL see note: normal Refer ence Range : Refer ence Range Not estab lishe d Not Available [address] [address] , [place], [address], 09/11/2022 16:50:23 09/11/19 23 09/11/2022 ALBUM IN, [...] a diagn ostic categ ory. Not Available [address] [address] [place], [address], 09/11/2022 16:50:23 09/11/19 23 09/11/2022 ALBUM IN, RANDO M URINE W/CRE ATINI NE copy(ies) sent to: [facility] [address] [place] [address] Not Available [address], [address], 09/11/2022 16:50:23 09/11/19 23 09/11/2022 THYRO ID PEROX IDASE ANTIB ODIES thyroid peroxidase antibodies <1 IU/mL <9 normal Not Available [address], [address], 09/11/2022 16:50:24 09/11/19 23 09/11/2022 THYRO ID PEROX IDASE ANTIB ODIES copy(ies) sent to: [facility] [address] [place] [address] Not Available [address], [address], 09/11/2022 16:50:24 09/11/19 23 09/11/2022 T3, FREE T3, free 3.0 pg/mL 2.3-4. 2 normal Not Available [address], [address], 09/11/2022 16:50:24 09/11/19 23 09/11/2022 T3, FREE copy(ies) sent to: [facility] [address] [place] [address] Not Available [address], [address], 09/11/2022 16:50:24 09/11/19 23 09/11/2022 TSH+F REE T4 TSH 1.07 mIU/L 0.40-4 .50 normal Not Available [address], [address], 09/11/2022 16:50:25 09/11/19 23 09/11/2022 TSH+F REE T4 T4, free 1.3 NG/dL 0.8-1. 8 normal Not Available [facility] [address], [place], [address], 09/11/2022 16:50:25 09/11/19 23 09/11/2022 TSH+F REE T4 copy(ies) sent to: [facility] [address] [place] [address] Not Available [facility] [address], [place], [address], 09/11/2022 16:50:25 09/11/19 23 09/11/2022 HEMOG LOBIN [...] Diabe feli(A DA). Not Available [facility] [address] [place], [address], 09/11/2022 16:50:25 09/11/19 23 09/11/2022 HEMOG LOBIN A1C copy(ies) sent to: [facility] [address] [place] [address] Not Available [employer] [facility] [address], [place], [address], 09/11/2022 16:50:25 03/11/20 22 03/11/2022 US, abdom en No observ ation record ed. [id number] [facility] [address], [place], [address], 07/29/2022 02:35:39 09/18/19 23 09/17/2022 MAMMO kristen bilat eral No observ ation record ed. [facility] [address] [place], [address], 09/29/2022 08:25:03 Result Notes None recorded. Problems Name Problem SNOMED Code Status Onset Date Resolution Date Notes Provider Name and Address Organization Details Recorded Time Chronic obstructive pulmonary disease 50456953 Active 2020 Not Available [facility] 3 02:32:03 Asthma 278987823 Active 2020 Not Available [facility] 3 02:32:03 Dyspnea 185328528 Active 2020 Not Available [facility] 3 02:32:03 Fatigue 53690817 Active 2020 Not Available [facility] 3 02:32:03 Obstructive sleep apnea syndrome 77967332 Active 2021 Not Available [facility] 3 02:32:03 Body mass index 30+ - obesity 809124311 Active 2021 Not Available [facility] 3 02:32:03 Shmuel thyroiditis 37829934 Active 2021 Not Available [facility] 3 02:32:03 Prediabetes 232515004 Active 2021 Not Available [facility] 3 02:32:03 Gastroesophag eal reflux disease without esophagitis 748941200 Active 2021 Not Available [facility] 3 02:32:03 Allergic rhinitis 04856679 Active 2022 Tamela Judd, [facility] [address], [place], [address] , [facility] 3 13:24:49 Problem Notes None recorded. 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 Procedure Notes None recorded. Medical Equipment None Reported. Allergies Allergen ID Allergen Name Allergen Category Reaction Reaction Severity Criticality Documentation Date Start Date Code Code System Note Provider Name and Address Organization Details Recorded Time 3270 Substance with sulfonami de structure and antibacte rial mechanism of action (substanc e) medicatio n rash Not available Not available 07/29/2022 42671 8003 SNOMED Not Available [facility] 3 02:35:20 Medications Name Sig Start Date [...] completed Not Available Not Available Not Available [facility] Thyroid 15 mg tablet TAKE 1 TABLET [...] Updated DateTime 3 167.64 cm 35 kg/m2 61901.5 4 g 97.9 [degF] 66 /min 95 % 95 % 130/76 mm[Hg] Yara Keene MA [facility] [employer] [facility] 3 11:34:17 Date Recorded Body mass index (BMI) Body height Oxygen saturation Oxygen saturation in Arterial blood by Pulse oximetry Heart rate Body temperature Body weight Systolic And Diastolic Provider Name and Address Organization Details Last Updated DateTime 2 35.7 kg/m2 167.64 cm 96 % 96 % 80 /min 97.6 [degF] 202996. 35 g 139/82 mm[Hg] Not Available [facility] 3 02:31:00 Date Recorded Body height Body mass index (BMI) Body weight Heart rate Oxygen saturation Oxygen saturation in Arterial blood by Pulse oximetry Systolic And Diastolic Provider Name and Address Organization Details Last Updated DateTime 3 167.64 cm 34.1 kg/m2 26688.9 9 g 67 /min 97 % 97 % 150/64 mm[Hg] Michelle Too [facility] [employer] [facility] 3 12:08:09 Date Recorded Body mass index (BMI) Body height Oxygen saturation Oxygen saturation in Arterial blood by Pulse oximetry Heart rate Body temperature Body weight Systolic And Diastolic Provider Name and Address Organization Details Last Updated DateTime 2 34.4 kg/m2 167.64 cm 95 % 95 % 78 /min 97.2 [degF] 10097.1 7 g 122/80 mm[Hg] Not Available [facility] 3 02:31:00 Date Recorded Body mass index (BMI) Body height Oxygen saturation Oxygen saturation in Arterial blood by Pulse oximetry Heart rate Body temperature Body weight Systolic And Diastolic Provider Name and Address Organization Details Last Updated DateTime 2 34.7 kg/m2 167.64 cm 94 % 94 % 61 /min 97.2 [degF] 74513.3 6 g 154/72 mm[Hg] Not Available [facility] 02:31:00 Social History Question Answer Notes LastModified by RiplizStudentbox ion Details LastModified Time Tobacco Smoking Status Never Smoker Not Available [facility] 07/29/2022 02:27:01 What Is Your Level Of Caffeine Consumption? Moderate [id number] Information not available 07/29/2022 How Much Tobacco Do You Chew? None [id number] Information not available 07/29/2022 In The 14 Days Before Symptom Onset, Have You Had Close Contact With A Laboratory-confirm ed COVID-19 While That Case Was Ill? No [id number] Information not available 07/29/2022 In The 14 Days Before Symptom Onset, Have You Had Close Contact With A Person Who Is Under Investigation For COVID-19 While That Person Was Ill? No [id number] Information not available 07/29/2022 Which Illicit Or Recreational Drugs Have You Used? None [id number] Information not available 07/29/2022 What Was The Date Of Your Most Recent Tobacco Screening? 01/20/2021 [id number] Information not available 07/29/2022 Do You Have Any Pets? No [id number] Information not available 07/29/2022 What Is Your Relationship Status? [id number] Information not available 07/29/2022 Have You Recently Traveled Abroad? No [id number] Information not available 07/29/2022 Sex: Female Functional Status Question Answer Note LastModified by Organizat ion Details LastModified Time Do you use any illicit or recreational drugs? No [id number] Information not available 07/29/2022 What is your level of alcohol consumption? None [id number].[id number] Information not available 07/29/2022 Do you or have you ever used smokeless tobacco? Never used smokeless tobacco [id number].[id number] Information not available 07/29/2022 What is your occupation? retired [id number] Information not available 07/29/2022 Do you or have you ever used e-cigarettes or vape? Never used electronic cigarettes [id number] Information not available 07/29/2022 Mental Status None recorded. Family History Relationship Description Onset Age of this Age Resolved Age Notes LastModified by Organization Details LastModified Time Sister Diabetes mellitus [id number] Not available 07/29/2022 02:29:42 Sister Hypothyroidi sm [id number] Not available 07/29/2022 02:29:42 Father Hypothyroidi sm [id number] Not available 07/29/2022 02:29:42 Medical History Condition Response EYE PROBLEMS Y NO SIGNIFICANT PAST MEDICAL HISTORY HYPOTHYROIDISM Y Gynecological HistoryNo gynecological history recorded. Obstetrics History GPAL:G 0 P 0 0 0 0 Past Encounters Encounter ID Performer Location Encounter Start Date Encounter Closed Date Diagnosis/Indication Diagnosis SNOMED-CT Code Diagnosis ICD10 Code Diagnosis IMO Codes Diagnosis Note [id number] Kristine Farooq MD [facility] [address] [place] [address] 08/19/2020 00:00:00 08/19/2020 17:17:27 [id number] Kristine Farooq MD [facility] [address] [place] [address] 11/18/2020 00:00:00 11/18/2020 14:08:23 [id number] [facility] [address] [place] [address] 11/21/2020 00:00:00 11/21/2020 15:52:30 [id number] [facility] [place] [address] [place] [address] 01/20/2021 00:00:00 01/20/2021 15:47:48 [id number] Kristine Farooq MD [facility] [address] [place] [address] 03/10/2021 00:00:00 03/10/2021 12:33:46 [id number] Kristine Farooq MD [facility] [address] [place] [address] 08/04/2021 00:00:00 08/04/2021 14:44:32 [id number] [facility] [place] [address] [place] [address] 08/11/2021 00:00:00 08/11/2021 16:49:04 [id number] Kristine Farooq MD [facility] [address] [place] [address] 11/14/2021 00:00:00 11/14/2021 15:10:45 [id number] [facility] [place] [address] [place] [address] 02/25/2022 00:00:00 02/25/2022 11:18:25 [id number] [facility] [address] [place] [address] 03/06/2022 00:00:00 03/06/2022 13:48:59 [id number] [facility] [place] [address] [place] [address] 04/08/2022 00:00:00 04/08/2022 14:22:53 [id number] [facility] [place] [address] [place] [address] 05/11/2022 00:00:00 05/11/2022 13:35:04 [id number] [address] [facility] [place] [address] [place] [address] 09/09/2022 11:20:52 09/10/2022 08:57:46 Asthma 153794801 J45.909 ACT 19 todayPFT 09/24/20 with FEV1 53%, ratio normal.27% increase in FEV1 PBD.DLCO 86%Plan to repeat within the next yearContin ue Breo Ellipta 200 once dailyShe is aware to rinse and spit after use.Rescue MDI PRN.CBC with manual eosinophil count normalIGE normalAvoi d triggers.D iscussed reportable signs and symptoms.R TC in 6 months, PRN for concern Allergic rhinitis 230512 04 J30.9 RAST with several positives: cedar, rob and mountain grassDaily antihistam ine OTC.She is not amenable to using any nasal sprayAdvis ed navage at least once daily Obstructiv e sleep apnea syndrome 01260223 G47.33 Home study 03/25/21 with AHI 19.2APAP [...] bedtime. Body mass index 30+ - obesity 597832604 Z68.35 Discussed weight management .Healthy well balanced meals.Incr ease exercise, ideally 30 minutes most days of the week. [id number] Tamela Judd, [facility] [place] [address] [place] [address] 03/10/2023 11:29:54 03/10/2023 12:32:47 Asthma 583789819 J45.909 ACT 16 todayPFT 09/24/20 with FEV1 53%, ratio normal.27% increase in FEV1 PBD.DLCO 86%Plan to repeat within the next yearContin ue Breo Ellipta 200 once dailyShe is aware to rinse and spit after use.Rescue MDI PRN.CBC with manual eosinophil count normalIGE normalAvoi d triggers.D iscussed reportable signs and symptoms.A dvised vaccines this fall Obstructiv e sleep apnea syndrome 77841200 G47.33 Home study 03/25/21 with AHI 19.2APAP [...] 1 [employer] (MEDICARE REPLACEMENT/ ADVANTAGE - PPO) [phone] Ani R Naomi [id number] Ani Salgado Notes Date Note Type Note Provider Name and Address Organization Details Recorded Time 09/09/2022 text/html Ms Salgado presents today to follow up on asthma, cough, [...] interfered with PAP use recently Tamela Judd, [facility] [address] [facility] [facility] [address] [facility] [address], [place], [address], [employer] 09/09/2022 13:50:36 03/10/2023 text/html Ms Salgado presents today to follow up on asthma, cough, [...] to go to the bathroom Tamela Judd, [facility] [address], [address], [place], [address], [employer] 03/10/2023 16:18:41 OBGyn Episode No OBEpisode recorded.
== END 2025-03-01 13:57 | disposition home or self-care (01) ==
LOC: CHSIMG 13:57
PROVIDERS: PCP Internal Medicine; Visit Provider Internal Medicine
DX: Z12.31 Encounter for screening mammogram for malignant neoplasm of breast (principal)
CPT/HCPCS: 77063; 77067